=== PATIENT | male | born 1935 | race Caucasian/White ===

== ENCOUNTER 2018-09-15 21:51 | Inpatient (IN) | payer MEDICARE ==
--- NOTE | 2018-09-15 22:39 | RAD ---
PORTABLE CHEST ONE VIEW 09/15/18 at 10:21 p.m. HISTORY: Chest pain. FINDINGS: The heart size is borderline. The lungs were expanded without lobar consolidation, pneumothoraces, fr ank pulmonary edema or pleural effusions. IMPRESSION: No acute process. POS: [facility]
[2018-09-15 22:45] LABS: #Lymphocytes 1.7 thou/uL (1.20-3.40); #Monocytes 0.4 thou/uL (0.11-0.59); #Neutrophils 6.5 thou/uL (1.40-6.50); %Basophils 0.4 % (0.0-1.0); %Eosinophils 0.6 % (0.0-10.0); %Lymphocytes 19.9 % (21.0-51.0); %Monocytes 4.5 % (0.0-10.0); %Neutrophils 74.7 % (42.0-75.0); Hemoglobin 11.1 g/dL (14.0-18.0); MDiff Complete? YES; Macrocytosis SLIGHT = 6-15 cells (100X) (0-5/hpf); Mean Corpuscular HGB CONC 31.5 g/dL (32.0-36.0); Mean Corpuscular Hemoglobin 32.9 pg (27.0-31.0); Platelet Count 155 thou/uL (130-400); RBC Distribution Width 12.6 % (11.5-14.5); Red Blood Cell (RBC) Count 3.36 mill/uL (4.70-6.10); White Blood Cell (WBC) Count 8.7 thou/uL (4.8-10.8)
[2018-09-15 22:53] LABS: ALT (SGPT) Less than 7 U/L (8-55); AST (SGOT) 11 U/L (5-34); Albumin 2.7 g/dL (3.4-4.8); Alkaline Phosphatase 45 U/L (40-150); Anion Gap 14 mmol/L (10-20); BUN (Urea Nitrogen) 12 mg/dL (8.4-25.7); Bilirubin, Total 0.4 mg/dL (0.2-1.2); CK (CPK) 46 U/L (30-200); Calc. Creatinine Clearance 0 mL/min (70-130); Calcium 8.3 mg/dL (7.8-10.44); Carbon Dioxide 25 mmol/L (23-31); Chloride 105 mmol/L (98-107); Estimated GFR-MDRD 49; Globulin 3.6 g/dL (2.4-3.5); Glucose 116 mg/dL (83-110); Lipase 13 U/L (8-78); Potassium 3.7 mmol/L (3.5-5.1); Protein, Total 6.3 g/dL (5.8-8.1); Sodium 140 mmol/L (136-145)
[2018-09-15 23:19] LABS: INR-International Normal Ratio 1.4; PTT 34.8 SEC (22.9-36.1); Prothrombin Time 17.5 SEC (12.0-14.7)
[2018-09-16] MEDS ORDERED: Ondansetron PF 4 MG/2 ML Vial IVP PRN (02:16)
[2018-09-16] MEDS ORDERED: Acetaminophen 325 MG TAB PO PRN (02:16)
[2018-09-16] MEDS ORDERED: Ondansetron ODT 4 MG TAB SL PRN (02:16)
[2018-09-16 02:38] LABS: Hemoglobin 9.9 g/dL (14.0-18.0)
[2018-09-16] MEDS ORDERED: Digoxin 0.5 MG/2 ML AMP SLOW IVP PRN (04:06)
[2018-09-16] MEDS ORDERED: Midodrine HCl 5 MG TAB PO SCH (09:00)
[2018-09-16 09:48] LABS: #Eosinphils 0.1 thou/uL (0.0-0.7); #Lymphocytes 2.1 thou/uL (1.20-3.40); #Monocytes 0.3 thou/uL (0.11-0.59); #Neutrophils 4.5 thou/uL (1.40-6.50); %Eosinophils 0.9 % (0.0-10.0); %Monocytes 4.1 % (0.0-10.0); Hemoglobin 9.8 g/dL (14.0-18.0); Mean Corpuscular Hemoglobin 34.4 pg (27.0-31.0); Mean Platelet Volume 9.4 fL (7.4-10.4); Platelet Count 156 thou/uL (130-400); RBC Distribution Width 12.5 % (11.5-14.5); Red Blood Cell (RBC) Count 2.86 mill/uL (4.70-6.10); White Blood Cell (WBC) Count 6.9 thou/uL (4.8-10.8)
[2018-09-16 10:10] LABS: ALT (SGPT) Less than 7 U/L (8-55); AST (SGOT) 10 U/L (5-34); Albumin 2.6 g/dL (3.4-4.8); Alkaline Phosphatase 40 U/L (40-150); Anion Gap 14 mmol/L (10-20); BUN (Urea Nitrogen) 12 mg/dL (8.4-25.7); Bilirubin, Total 0.5 mg/dL (0.2-1.2); Calc. Creatinine Clearance 58 mL/min (70-130); Calcium 8.2 mg/dL (7.8-10.44); Carbon Dioxide 25 mmol/L (23-31); Chloride 106 mmol/L (98-107); Estimated GFR-MDRD 53; Globulin 3.3 g/dL (2.4-3.5); Glucose 105 mg/dL (83-110); Iron 29 ug/dL (65-175); Iron Binding Capacity, Total 180 mcg/dL (261-462); Potassium 3.8 mmol/L (3.5-5.1); Protein, Total 5.9 g/dL (5.8-8.1); Sodium 141 mmol/L (136-145)
[2018-09-16] MEDS ORDERED: GoLYTELY 4,000 ml Bottle PO SCH (10:30)
--- NOTE | 2018-09-16 10:40 | CON ---
DATE OF CONSULTATION: 09/16/2018 HISTORY OF PRESENT ILLNESS: The patient is an 83-year-old male, who was in his normal state of health until yesterday morning when he had a large amount of blood per rectum. He has not had prior GI bleeding. He had no abdominal pain. No nausea or vomiting. No recent weight loss. The patient does take Eliquis for atrial fibrillation. He had a colonoscopy approximately 5 to 6 years ago with no significant abnormalities noted per the patient's . PAST MEDICAL HISTORY: Significant for congestive heart failure and atrial flutter. PAST SURGICAL HISTORY: Includes appendectomy and cholecystectomy. ALLERGIES: NO KNOWN MEDICAL ALLERGIES. MEDICATIONS: Include: 1. Aspirin 81 mg p.o. daily. 2. Atorvastatin 40 mg once daily. 3. Eliquis 5 mg b.i.d. 4. Ranexa 500 mg p.o. b.i.d. 5. Midodrine 10 mg p.o. t.i.d. 6. Zyrtec 10 mg one p.o. daily. 7. Centrum Silver 1 p.o. daily. 8. Vitamin B12 of 1000 mcg one p.o. daily. SOCIAL HISTORY: Does not smoke or drink. FAMILY HISTORY: Negative for GI or liver disease. REVIEW OF SYSTEMS: CONSTITUTIONAL: No fever or chills. No weight loss. EYES: No blurred vision or double vision. ENT: No sore throat or earaches. CARDIOVASCULAR: No chest pain or palpitations. PULMONARY: No shortness of breath, cough, or wheezing. GI: See above. : No hematuria or dysuria. MUSCULOSKELETAL: No joint pain or muscle weakness. SKIN: No rashes. NEUROLOGIC: No numbness or seizure activity. PHYSICAL EXAMINATION: GENERAL: Shows a well-developed, well-nourished white male, in no acute distress. VITAL SIGNS: Temperature 99.1, pulse 122, respiratory rate 16, and blood pressure 114/60. HEENT: Unremarkable. NECK: Supple. CHEST: Clear. CARDIOVASCULAR: Irregular rate and rhythm. ABDOMEN: Benign. EXTREMITIES: Normal. NEUROLOGIC: Nonfocal. LABORATORY DATA: Shows admission hemoglobin 11.1 and hematocrit of 35.2, decreased to 9.8 and 29.8. PT is 15.5 with an INR of 1.4. Chemistry shows a creatinine 1.38, glucose 111. ALT less than 7 and albumin 2.7. ASSESSMENT: 1. Gastrointestinal bleed. 2. Anemia secondary to gastrointestinal bleed. 3. History of atrial fibrillation or atrial flutter, on Eliquis. 4. Dyspepsia - probably represents gastroesophageal reflux. RECOMMENDATIONS: 1. EGD and colonoscopy tomorrow. 2. Continue to hold Eliquis. 3. Serial hemoglobin and hematocrit. Job ID: [id number]
--- NOTE | 2018-09-16 12:16 | HP ---
PRIMARY CARE PHYSICIAN: Dr. Padilla. The patient does have Cardiology EP physician in [place]. CHIEF COMPLAINT/HISTORY OF PRESENT ILLNESS: The patient presented to the emergency room for evaluation of hematochezia. Reports 2 bright red stools starting earlier in the day. Also reported a heart rate of 125 this week. Had a history of atrial flutter, reports that is normally 68 to 72, but it is in the 95 to 105 range. Reports that he is scheduled for a cardiac ablation as he has been in atrial flutter for the past 2 weeks. Cardiac ablation scheduled in [place]. The patient also with history of atrial fibrillation, had an ablation for that 12 years ago, and has been asymptomatic until recently. The patient is on Eliquis, but when he started having blood in the stools, he did not take his dose yesterday. Denies any abdominal pain, but is associated some nausea, some weakness, and bloating. Denies any chest pain per se. The patient reports no more bloody stools since he was admitted to the hospital. It was noted his hemoglobin on admission was 11.1, hematocrit 35.2, and platelet count was 155, 9 o'clock, 09/16/2018. Hemoglobin gone down to 9.8, hematocrit 29.8, and platelet count remains the same. INR is 1.4, PT 17.5, and APTT 34.8. The patient was admitted for further management of lower GI bleed and atrial flutter with increased heart rate. PAST MEDICAL HISTORY: Congestive heart failure, atrial flutter, hypotension, history of atrial fibrillation, and has had an ablation. PAST SURGICAL HISTORY: Appendectomy, cholecystectomy, and cardiac ablation. PSYCHIATRIC HISTORY: None. SOCIAL HISTORY: Denies alcohol or drug use. Denies any smoking history. ALLERGIES: NONE. MEDICATIONS: Include, 1. Aspirin 81 mg p.o. daily. 2. Atorvastatin 40 mg once daily. 3. Eliquis 5 mg b.i.d. 4. Ranexa 500 mg p.o. b.i.d. 5. Midodrine 10 mg p.o. t.i.d. 6. Zyrtec 10 mg p.o. daily. 7. Centrum 1 p.o. daily. 8. Vitamin B12 1000 mcg one p.o. daily. REVIEW OF SYSTEMS: CONSTITUTIONAL: Denies fever or chills. EYES: Denies any eye pain or any eye changes. ENT: Denies rhinorrhea or sore throat. CARDIOVASCULAR: Does report an elevated heart rate. Reports hypotension. RESPIRATORY: Denies cough or shortness of breath. GI: Denies abdominal pain, constipation, or diarrhea. Does report some nausea, hematochezia, and bloating. : Denies any dysuria or hematuria. MUSCULOSKELETAL: Denies back pain. Denies recent fall or injury. Denies neck pain. SKIN: Denies rash or skin changes. NEUROLOGIC: Denies any headache or sensory or motor deficits. HEMO: Denies abnormal blood clotting. PHYSICAL EXAMINATION: VITAL SIGNS: Temperature is 99.1, pulse 122, respirations 16, pulse ox 94% on room air, and blood pressure 114/60. CONSTITUTIONAL: The patient appears in no distress. He is alert and oriented to person, place, and time. HEENT: Head is atraumatic and normocephalic. Eyes; eyelids are normal to inspection. Pupils are equally round and reactive to light. ENT; mouth exam is normal. Mucous membranes are moist. NECK: Normal range of motion. Trachea is midline. RESPIRATORY: Breath sounds are clear. No signs of respiratory distress. CARDIOVASCULAR: Irregularly irregular rhythm. Heart sounds are normal. ABDOMEN: Nontender. Bowel sounds are heard. BACK: Normal inspection. Normal range of motion. EXTREMITIES: Upper extremity; motor strength is normal, sensation is intact, radial pulses equal bilaterally. Lower extremity; normal inspection, normal range of motion, sensation is intact, pedal pulses equal bilaterally. NEURO: The patient is oriented to person, place, and time. Speech is normal. SKIN: Warm, dry, normal in color. PSYCH: Normal affect. DIAGNOSTIC DATA: EKG interpretation; EKG shows rhythm to be atrial fibrillation with rapid ventricular response, beats per minute 105. PERTINENT LABORATORY DATA: Sodium 140, potassium 3.7, chloride 105, carbon dioxide 25, gap is 14, BUN is 12, creatinine is 1.38, estimated GFR is 49, glucose 116, calcium 8.3, bilirubin is 0.4, and lipase is 13. Liver enzymes are unremarkable. White blood cell count 8.7, hemoglobin 11.1, hematocrit 35.2, and platelet count is 155. The patient had a chest x-ray, no acute process. ASSESSMENT AND PLAN: 1. Lower gastrointestinal bleeding. We will hold Eliquis and aspirin. We will trend hemoglobin and hematocrit. We will ask Gastroenterology to consult. We will keep n.p.o. until Gastroenterology has been able to see the patient. 2. Atrial fibrillation with history of atrial flutter, currently rate controlled. We will ask Cardiology to consult. Add digoxin as needed. 3. History of hypotension. We will restart midodrine. 4. Congestive heart failure. We will start Ranexa. We will monitor for any signs of fluid overload. 5. Hyperlipidemia. We will restart statin. 6. Hospital course will be dependent on clinical findings. Job ID: [id number]
--- NOTE | 2018-09-16 12:29 | CON ---
DATE OF CONSULTATION: PRIMARY BOARDING KENNEL OR CATTERY OPERATOR: The patient's primary senior research manager is in [place] in [place]. PRIMARY CARE DOCTOR: The patient's primary care doctor here in the [facility] is going to be Dr. Kimberlyn Lorenzo. REFERRING PROVIDER: Ms. Emma Harris. REASON FOR CARDIOLOGY CONSULT: Atrial fibrillation with RVR, holding Eliquis due to GI bleed. HISTORY OF PRESENT ILLNESS: Mr. Clemons is an 83-year-old male with a significant long history of atrial fibrillation with ablation in 2006, systolic congestive heart failure, possible multiple TIA and possible coronary artery disease, and sleep apnea using CPAP at night. He had had bright stool x3 since yesterday noon and after the 3rd BM, the patient's took the patient to the emergency department for further evaluation and treatment. The patient's hemoglobin level have been 11.1, 9.9, and 9.8. The patient has been on Eliquis 5 mg twice a day with aspirin 81 mg once a day for atrial fibrillation and possible history of coronary artery disease. For at least 2 years prior to that, the patient was on Coumadin for atrial fibrillation. He never has any GI bleed before. This is the first time. However, he noticed he started having palpitation and worsening of shortness of breath for the last 2 weeks and also he lost appetite and he lost 5 pounds over the 2 weeks. He has history of dizziness due to the hypotensive. However, for the last 2 weeks, his symptoms getting worse and according to the patient, the patient is not thinking clear for the last 2 weeks. The patient denied any chest pain, discomfort in his chest, numbness or tingling to the left upper extremity, pressure to the neck, nausea or vomiting at this moment or during the last 2 weeks. The patient have seen senior research manager in [place] for atrial fibrillation. The patient was told that he had the low EF. Last echo was done 6 months ago, which showed EF of 36% per . He had cardiac cath in 2002. He was told he does not have any coronary artery disease. He has a long history of atrial fibrillation. He has one ablation in 2006. Since then, he has less than 30 minutes Afib episode once a month per . The patient had cardiac CT scan several months ago for possible valve replacement. However, family and the patient did not know which valve the patient need a repair at this moment. The patient had a possible several TIA. However, patient did not present to the emergency department during those episodes. According to the , the patient's provider have checked his echocardiogram which have been normal. MEDICAL HISTORY: 1. Congestive heart failure, possible systolic congestive heart failure, long history of atrial fibrillation. 2. Hypotension. SURGICAL HISTORY: Appendectomy, cholecystectomy, atrial fibrillation ablation in 2006, and bilateral cataract surgery. FAMILY HISTORY: There are no significant cardiac related family history in his family. SOCIAL HISTORY: He stayed in a [place] with his . He denies tobacco, EtOH, or illicit drug abuse. He drinks two bottle of Dr Pepper a day. He used to be active until 2 weeks ago according to due to his cognitive change and they decided to moving to [email or web address]. ALLERGIES: HE IS ALLERGIC TO YEAST. HOME MEDICATIONS: 1. Probiotic one capsule once a day. 2. Calcium 1200 mg once a day. 3. Aspirin 81 mg once a day. 4. Multivitamin one tablet once a day. 5. Vitamin E 400 units once a day. 6. Cetirizine 10 mg once a day. 7. Ropinirole 0.5 mg once a day at bedtime. 8. Vitamin B12 1000 mcg once a day. 9. Midodrine 10 mg 3 times a day. 10. Atorvastatin 20 mg once a day. 11. Ranexa 500 mg twice a day. 12. Eliquis 5 mg once a day. 13. Senna one tablet once a day. REVIEW OF SYSTEMS: 12-point review of systems negative unless otherwise mentioned in the HPI. PHYSICAL EXAMINATION: VITAL SIGNS: Blood pressure 114/60, temperature 99.1, pulse is 100s to 120s Afib, respiratory rate is 16, O2 saturation 94% with room air. GENERAL: The patient is alert and oriented x4, but slow to follow, hard to hearing, but not in acute distress. HEAD: Normocephalic, atraumatic. EYES: Extraocular muscle movement intact. ENT AND MOUTH: Oral and nasal mucosa are moist without lesion. NECK: No JVD. Normal range of motion. LUNGS: Clear to auscultate bilaterally. No wheezing, rales, or rhonchi noted. CARDIOVASCULAR: Irregularly irregular. No S3, S4. No significant murmur, heaves, or thrill noted. 2+ pulses in upper and lower extremities. They have 1-2 pitting edema in the bilateral lower extremities. No discoloration. Carotid pulses are present without bruit or thrill noted. ABDOMEN: Soft, nontender. No masses to palpitate. SKIN: Warm and dry. No rash, lesion, or hematoma noticed. MUSCULOSKELETAL: The patient is able to move all extremities. The patient denied claudication. NEUROLOGIC: The patient is alert and oriented x4. Again, the patient is slow to response. PSYCHIATRIC: The patient's mood is very appropriate. LABORATORY DATA: WBC 6.9, hemoglobin 9.8, hematocrit 29.8, platelet 156. PT 17.5, INR 1.4. Sodium of 141, potassium of 3.8, BUN 12, creatinine 1.29, glucose 105, calcium 8.2. AST 10, ALT less than 7, and troponin 0.027. The patient's chest x-ray showed no acute process. ASSESSMENT AND PLAN: 1. Possible lower gastrointestinal bleed. The patient has bright red bloody stool x3 at home. Already, Dr. Castañeda, who is a GI service consulted this patient. The patient is going to plan to have the procedure, GI workup tomorrow. At this moment, the patient's Eliquis and aspirin is going to be on hold. The patient is going to have serial H and H check. 2. Atrial fibrillation with rapid ventricular response. The patient's heart rate have been in the 90s to 120s. The patient received digoxin 0.25 mg IV push around 4. We would like to start digoxin instead of starting a beta-meri or any antiarrhythmic medication due to the patient's blood pressure. We would like to continue to monitor on the telemetry. The patient's Eliquis and aspirin is going to be hold due to the lower GI bleed. 3. Chronic systolic heart failure. The patient is stable with room air, however, he has 2 pitting edema in the bilateral lower extremities. However, we would like to hold the diuretic for now until his blood pressure is stable at this moment. We would like to continue to monitor. 4. History of possible multiple transient ischemic attack. The patient's condition is stable at this moment. I recommend the patient and to present to the emergency department for next similar symptoms that he had last time. 5. Hypotension. He is on midodrine 10 mg 3 times a day. We would like to continue to monitor. Thank you for allowing the Cardiology Services to participate in the care of this patient. We will follow along the patient's care team and make further recommendations as appropriate. Job ID: [id number]
[2018-09-16] MEDS: Midodrine HCl 5 MG TAB PO SCH ×2 (13:57→18:10)
[2018-09-16 14:34] LABS: Hemoglobin 9.3 g/dL (14.0-18.0)
--- NOTE | 2018-09-16 17:22 | PDOC.EVN ---
Event Note - Event Note Event Note: Patient is getting bowel prep, noted a lot of red blood in stool, Daphney RN talked to Dr. Castañeda, repeat H&H at 1800. Will be off Eliquis 48 hours in the AM. Cardiology consulted and have seen patient. Patient has Afib and has ablation scheduled in the [place].
[2018-09-16 17:59] LABS: Hemoglobin 9.8 g/dL (14.0-18.0); Platelet Count 147 thou/uL (130-400)
[2018-09-16] MEDS ORDERED: rOPINIRole HCl 0.25 MG TAB PO SCH (21:00)
[2018-09-16] MEDS: Atorvastatin Calcium 20 MG TAB PO SCH (21:23)
[2018-09-16] MEDS: rOPINIRole HCl 0.5 MG TAB PO SCH (21:23)
[2018-09-16 21:30] LABS: Hemoglobin 9.5 g/dL (14.0-18.0)
[2018-09-17 05:48] LABS: ALT (SGPT) Less than 7 U/L (8-55); AST (SGOT) 10 U/L (5-34); Albumin 2.6 g/dL (3.4-4.8); Alkaline Phosphatase 41 U/L (40-150); Anion Gap 13 mmol/L (10-20); BUN (Urea Nitrogen) 11 mg/dL (8.4-25.7); Bilirubin, Total 0.5 mg/dL (0.2-1.2); Calc. Creatinine Clearance 64 mL/min (70-130); Carbon Dioxide 25 mmol/L (23-31); Chloride 107 mmol/L (98-107); Estimated GFR-MDRD 60; Glucose 98 mg/dL (83-110); Potassium 3.6 mmol/L (3.5-5.1); Protein, Total 5.6 g/dL (5.8-8.1); Sodium 141 mmol/L (136-145)
[2018-09-17 06:06] LABS: #Eosinphils 0.1 thou/uL (0.0-0.7); #Lymphocytes 1.8 thou/uL (1.20-3.40); #Monocytes 0.3 thou/uL (0.11-0.59); #Neutrophils 3.1 thou/uL (1.40-6.50); %Basophils 0.2 % (0.0-1.0); %Eosinophils 1.9 % (0.0-10.0); %Lymphocytes 34.2 % (21.0-51.0); %Monocytes 5.7 % (0.0-10.0); Hemoglobin 9.1 g/dL (14.0-18.0); Mean Corpuscular HGB CONC 33.1 g/dL (32.0-36.0); Mean Corpuscular Hemoglobin 34.6 pg (27.0-31.0); Platelet Count 138 thou/uL (130-400); Platelet Morphology Comment Appears Adequate; RBC Distribution Width 12.8 % (11.5-14.5); Red Blood Cell (RBC) Count 2.62 mill/uL (4.70-6.10); White Blood Cell (WBC) Count 5.4 thou/uL (4.8-10.8)
[2018-09-17] MEDS: Cyanocobalamin (Vitamin B-12) 1,000 MCG TAB PO SCH (08:19)
[2018-09-17] MEDS: Loratadine 10 MG TAB PO SCH (08:19)
[2018-09-17] MEDS: Calcium Carbonate 500 MG TAB PO SCH (08:19)
[2018-09-17] MEDS: Midodrine HCl 5 MG TAB PO SCH ×4 (08:19→17:57)
[2018-09-17] MEDS: Vitamin E 400 UNITS CAP PO SCH (08:20)
[2018-09-17] MEDS: Senokot S 8.6-50 MG TAB PO SCH (08:20)
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
[2018-09-17] MEDS ORDERED: Fentanyl 100 MCG/2 ML VIAL ONE (10:27)
--- NOTE | 2018-09-17 11:10 | PDOC.CTH ---
Cardiology Progress Note - Subjective The pt seen and examined. No overnight events. No cardiac complaints. - Objective Vital Signs Temp Pulse Resp BP Pulse Ox 09/17/18 08:00 95 09/17/18 07:43 98.6 F 98 18 113/71 95 09/17/18 04:00 97.8 F 115 H 18 123/72 95 09/16/18 23:33 99.0 F 96 16 111/63 93 L Weight 207 lb 3 oz 09/16/18 09/17/18 09/18/18 06:59 06:59 06:59 Intake Total 0 2240 Output Total 0 Balance 0 2240 - Physical Examination General/Neuro: alert & oriented x3 Neck: no JVD present Lungs: CTA Heart: other: (irregular) Abdomen: soft Extremities: other: (No edema) - Telemetry Telemetry Rhythm: Afib 80-110s - Labs Result Diagrams: 09/17/18 04:45 09/17/18 04:45 Troponin/CKMB Troponin I 0.027 ng/mL (< 0.028) 09/15/18 22:15 - Assessment/Plan 1. GI bleed - Hgb is stable; EGD and colonoscopy today; managed by GI service 2. Afib - stable HR; no OAC or ASA 2/2 GI bleed 3. CHF - [facility]; stable with RA. Not on BBlocker or SHANI/ARB due to hypotension 4. Orthstatic hypotension - on Midodrine 10mg TID; 5. Hx of TIA MAR reviewed Pt. seen and eval. by me. No new events. Pt. for GI endoscopy today. Chest clear. Irreg/irreg. Review of Systems - Review of Systems Constitutional: reports: no symptoms reported EENTM: reports: no symptoms reported Respiratory: reports: no symptoms reported Cardiac (ROS): reports: no symptoms reported ABD/GI: reports: no symptoms reported : reports: no symptoms reported Musculoskeletal: reports: no symptoms reported
[2018-09-17] MEDS ORDERED: Dronedarone HCl 400 MG TAB PO SCH ×2 (13:30→17:00)
[2018-09-17] MEDS ORDERED: Ondansetron PF 4 MG/2 ML Vial ONE (15:31)
[2018-09-17] MEDS ORDERED: PROPOFOL 200 MG/20 ML VIAL ONE (15:31)
[2018-09-17] MEDS ORDERED: Lidocaine 1% PF 5 ML VIAL ONE (15:31)
[2018-09-17] MEDS ORDERED: Glycopyrrolate 0.2 MG/ML 5 ML SYRINGE ONE (15:31)
--- NOTE | 2018-09-17 19:03 | PDOC.PN ---
- Subjective Encounter Start Date: 09/17/18 Encounter Start Time: 18:45 Subjective: f/u for GI bleeding on Eliquis s/p EGD/colonoscopy showing diverticulosis -: and polyps but no active bleeding. Hgb trend stable in the 9 range. -: Pt denies any CP, SOB, recurrent bleeding. - Objective MAR Reviewed: Yes Vital Signs & Weight: Vital Signs (12 hours) Temp Pulse Resp BP Pulse Ox 09/17/18 15:43 98.4 F 113 H 20 127/68 92 L 09/17/18 13:18 111 H 18 133/64 95 09/17/18 12:51 98.0 F 112 H 18 111/51 L 97 09/17/18 08:00 95 09/17/18 07:43 98.6 F 98 18 113/71 95 Weight Admit Weight 207 lb 3 oz Weight 207 lb 3 oz I&O: 09/16/18 09/17/18 09/18/18 06:59 06:59 06:59 Intake Total 0 2240 Output Total 0 Balance 0 2240 Result Diagrams: 09/17/18 04:45 09/17/18 04:45 Additional Labs: Laboratory Tests 09/16/18 09/16/18 09/16/18 02:31 09:06 14:26 Hgb 9.9 L 9.8 L 9.3 L 09/16/18 09/16/18 17:51 21:00 Hgb 9.8 L 9.5 L EKG Reviewed by me: Yes (Tele - A-fib in 105's) Phys Exam - Physical Examination Constitutional: NAD alert, responsive, smiles HEENT: PERRLA, sclera anicteric, oral pharynx no lesions Neck: no nodes, no JVD, supple, full ROM Respiratory: no wheezing, no rales, no rhonchi, clear to auscultation bilateral S1, S2 Cardiovascular: no significant murmur, no rub, irregular Gastrointestinal: soft, non-tender, no distention, positive bowel sounds Musculoskeletal: no edema, pulses present Neurological: normal sensation, moves all 4 limbs Psychiatric: A&O x 3 Skin: normal turgor, cap refill <2 seconds Dx/Plan (1) GI bleed Code(s): K92.2 - GASTROINTESTINAL HEMORRHAGE, UNSPECIFIED Status: Acute Comment: Likely related to diverticulosis and Eliquis, hold Eliquis, serial H/H monitoring (2) Acute blood loss anemia Code(s): D62 - ACUTE POSTHEMORRHAGIC ANEMIA Status: Acute Comment: H/H trend stable currently, no need for PRBC's currently, CBC in am (3) Atrial fibrillation with RVR Code(s): I48.91 - UNSPECIFIED ATRIAL FIBRILLATION Status: Acute Comment: Plan for HUSAM/Cardioversion in am, continue Multaq 400mg BID (4) Chronic anticoagulation Code(s): Z79.01 - FDC (CURRENT) USE OF ANTICOAGULANTS Status: Acute Comment: Eliquis on hold x 4 days - Plan plan discussed w/ family, PT/OT, out of bed/ambulate, DVT proph w/SCDs Stable currently -: Continue Multaq 400mg BID -: HUSAM/Cardioversion in am -: Continue Midodrine -: AM lab: BMP, CBC * .
[2018-09-17] MEDS: Dronedarone HCl 400 MG TAB PO SCH (20:13)
[2018-09-17] MEDS: Atorvastatin Calcium 20 MG TAB PO SCH (20:13)
[2018-09-17] MEDS: rOPINIRole HCl 0.5 MG TAB PO SCH (20:13)
[2018-09-18 05:46] LABS: #Eosinphils 0.1 thou/uL (0.0-0.7); #Lymphocytes 1.8 thou/uL (1.20-3.40); #Monocytes 0.4 thou/uL (0.11-0.59); #Neutrophils 4.7 thou/uL (1.40-6.50); %Basophils 0.3 % (0.0-1.0); %Lymphocytes 25.1 % (21.0-51.0); %Monocytes 5.5 % (0.0-10.0); %Neutrophils 68.1 % (42.0-75.0); Hemoglobin 8.7 g/dL (14.0-18.0); Mean Corpuscular Hemoglobin 34.9 pg (27.0-31.0); Mean Platelet Volume 8.9 fL (7.4-10.4); Platelet Count 129 thou/uL (130-400); RBC Distribution Width 12.9 % (11.5-14.5); Red Blood Cell (RBC) Count 2.49 mill/uL (4.70-6.10)
[2018-09-18] MEDS: Dronedarone HCl 400 MG TAB PO SCH ×2 (06:08→20:09)
[2018-09-18 06:14] LABS: Anion Gap 11 mmol/L (10-20); BUN (Urea Nitrogen) 12 mg/dL (8.4-25.7); Calc. Creatinine Clearance 59 mL/min (70-130); Calcium 8.1 mg/dL (7.8-10.44); Carbon Dioxide 26 mmol/L (23-31); Chloride 105 mmol/L (98-107); Estimated GFR-MDRD 56; Glucose 95 mg/dL (83-110); Potassium 3.8 mmol/L (3.5-5.1); Sodium 138 mmol/L (136-145)
--- NOTE | 2018-09-18 09:47 | PDOC.CTH ---
Cardiology Progress Note - Subjective The pt seen and examined. No overnight. No cardiac complaints. - Objective Vital Signs Temp Pulse Resp BP Pulse Ox 09/18/18 08:00 98.6 F 103 H 16 112/67 94 L 09/18/18 07:05 98.6 F 91 20 91/50 L 92 L 09/18/18 06:08 79 102/56 L 09/18/18 03:20 99.1 F 103 H 12 94/56 L 92 L 09/17/18 23:41 98.4 F 97 12 130/76 96 Admit Weight 207 lb 3 oz Weight 204 lb 09/17/18 09/18/18 09/19/18 06:59 06:59 06:59 Intake Total 2240 240 Balance 2240 240 - Physical Examination General/Neuro: alert & oriented x3 Neck: no JVD present Lungs: CTA Heart: other: (irregular) Abdomen: soft Extremities: other: (No edema) - Telemetry Telemetry Rhythm: Afib 90-110s - Labs Result Diagrams: 09/18/18 05:26 09/18/18 05:26 Troponin/CKMB Troponin I 0.027 ng/mL (< 0.028) 09/15/18 22:15 - Assessment/Plan 1. GI bleed 2/2 diverticulum - managed by GI service 2. Afib - stable HR; no OAC or ASA 2/2 GI bleed for at least 4 days; On Multaq since last night; plan for HUSAM/DCCV today by Dr Lorenzo 3. CHF - getting Echo result from [facility]; stable with RA. Not on BBlocker or SHANI/ARB due to hypotension 4. Orthstatic hypotension - on Midodrine 10mg TID; 5. Hx of TIA MAR reviewed Review of Systems - Review of Systems Constitutional: reports: no symptoms reported EENTM: reports: no symptoms reported Respiratory: reports: no symptoms reported Cardiac (ROS): reports: no symptoms reported ABD/GI: reports: no symptoms reported : reports: no symptoms reported Musculoskeletal: reports: no symptoms reported
[2018-09-18] MEDS: Loratadine 10 MG TAB PO SCH (09:51)
[2018-09-18] MEDS: Midodrine HCl 5 MG TAB PO SCH ×3 (09:51→16:52)
[2018-09-18] MEDS: Vitamin E 400 UNITS CAP PO SCH (09:52)
[2018-09-18] MEDS: Calcium Carbonate 500 MG TAB PO SCH (09:54)
[2018-09-18] MEDS: Senokot S 8.6-50 MG TAB PO SCH (09:54)
[2018-09-18] MEDS: Cyanocobalamin (Vitamin B-12) 1,000 MCG TAB PO SCH (09:54)
--- NOTE | 2018-09-18 12:25 | OP ---
DATE OF PROCEDURE: 09/17/2018 PREOPERATIVE DIAGNOSIS: GI hemorrhage. DESCRIPTION OF PROCEDURE: After informed consent was obtained, the patient was placed in left lateral decubitus position. Anesthesia was administered per the Anesthesia Department. Forward-viewing endoscope was inserted into esophagus under direct visualization with ease and passed to the second portion of the duodenum with ease. Second portion of duodenum and duodenal bulb were normal. The pylorus, antrum, body, fundus, and cardia were normal except for a small hiatal hernia. Retroflexion in stomach was normal. No blood was seen in the upper GI tract. Esophagus was normal throughout. ASSESSMENT: 1. Small hiatal hernia. 2. Otherwise normal esophagogastroduodenoscopy. RECOMMENDATIONS: 1. Proceed with colonoscopy. DESCRIPTION OF PROCEDURE: After informed consent was obtained, the patient was placed in a left lateral decubitus position. Anesthesia was administered per the Anesthesia Department. Forward-viewing endoscope was inserted into the rectum after perianal inspection and rectal exam were normal and passed to the cecum with ease and into the ileum. The ileum, ileocecal valve, and appendiceal orifice were normal. The prep was good. The ascending, transverse, descending, sigmoid, and rectum were normal except for the following findings. Diffuse diverticula were noted throughout the colon. In the cecum, a large 2 cm semi-pedunculated polyp was seen and removed with snare electrocautery. In the ascending, transverse, four additional polyps were seen, removed with snare polypectomy. ASSESSMENT: 1. Diffuse diverticulosis coli-probable source of the patient's bleeding. 2. Five polyps-status post polypectomy. RECOMMENDATIONS: 1. Await histopathology. 2. Hold Eliquis for four additional days, then resume. 3. Resume diet. Job ID: [id number]
[2018-09-18] MEDS ORDERED: PROPOFOL 200 MG/20 ML VIAL ONE (14:56)
--- NOTE | 2018-09-18 14:58 | PDOC.PN ---
- Subjective Encounter Start Date: 09/18/18 Encounter Start Time: 09:15 Patient seen and examined for GI bleed with Afib/RVR. No new GI bleeding No new complaints. No overnight events - Objective MAR Reviewed: Yes Vital Signs & Weight: Vital Signs (12 hours) Temp Pulse Pulse Pulse Pulse Resp BP 09/18/18 11:31 98.7 F 93 20 09/18/18 11:10 98.7 F 93 20 09/18/18 09:30 81 122 H 104 H 94/53 L 09/18/18 08:00 98.6 F 103 H 16 09/18/18 07:05 98.6 F 91 20 09/18/18 06:08 79 09/18/18 03:20 99.1 F 103 H 12 BP BP BP Pulse Ox 09/18/18 11:31 106/64 97 09/18/18 11:10 106/64 97 09/18/18 09:30 90/54 L 85/52 L 09/18/18 08:00 112/67 94 L 09/18/18 07:05 91/50 L 92 L 09/18/18 06:08 102/56 L 09/18/18 03:20 94/56 L 92 L Weight Admit Weight 207 lb 3 oz Weight 204 lb I&O: 09/17/18 09/18/18 09/19/18 06:59 06:59 06:59 Intake Total 2240 240 Balance 2240 240 Result Diagrams: 09/18/18 05:26 09/18/18 05:26 EKG Reviewed by me: Yes (Tele Afib) Phys Exam - Physical Examination Constitutional: NAD Respiratory: no wheezing, no rhonchi Cardiovascular: no rub, irregular Gastrointestinal: soft, non-tender, positive bowel sounds Musculoskeletal: no edema Neurological: moves all 4 limbs Dx/Plan - Plan DVT proph w/SCDs IMPRESSION: 1. LGI bleeding 2. Acute blood loss anemia 3. Afib with RVR 4. Chronic hypotension 5. HLD PLAN: HUSAM/CV in AM Anticoag on hold per GI Resume ASA in AM Cont Midodrine/Multaq and other meds as below AM labs Check iron profile in AM Consult [employer] for dietary modifications for diverticulosis Review of Systems - Review of Systems Respiratory: negative: Cough, Dry, Shortness of Breath, Hemoptysis, SOB with Excertion, Pleuritic Pain, Sputum, Wheezing Cardiovascular: negative: chest pain, palpitations, orthopnea, paroxysmal nocturnal dyspnea, edema, light headedness, other - Medications/Allergies Allergies/Adverse Reactions: Allergies Allergy/AdvReac Type Severity Reaction Status Date / Time Yeast Allergy Verified 09/16/18 13:50 Medications: Current Medications Aspirin (Ecotrin) 81 mg PO DAILY [facility] Atorvastatin Calcium (Lipitor) 20 mg PO HS [facility] Last Admin: 09/17/18 20:13 Dose: 20 mg Calcium Carbonate (Oscal-500) 1,200 mg PO DAILY [facility] Last Admin: 09/18/18 09:54 Dose: Not Given Cyanocobalamin (Vitamin B-12) 1,000 mcg PO DAILY [facility] Last Admin: 09/18/18 09:54 Dose: 1,000 mcg Dronedarone (Multaq) 400 mg PO 0600,2100 [facility] Last Admin: 09/18/18 06:08 Dose: 400 mg Loratadine (Claritin) 10 mg PO DAILY [facility] Last Admin: 09/18/18 09:51 Dose: 10 mg Midodrine (Proamatine) 10 mg PO 0900,1300,1800 [facility] Last Admin: 09/18/18 13:16 Dose: 10 mg Ranolazine (Ranexa) 500 mg PO BID [facility] Last Admin: 09/18/18 09:52 Dose: 500 mg Ropinirole HCl (Requip) 0.5 mg PO HS [facility] Last Admin: 09/17/18 20:13 Dose: 0.5 mg Senna/Docusate Sodium (Senokot S) 1 tab PO DAILY [facility] Last Admin: 09/18/18 09:54 Dose: Not Given Sodium Chloride (Flush - Normal Saline) 10 ml IVF Q12HR PRN PRN Reason: Saline Flush Vitamin E (Vitamin E) 400 units PO DAILY [facility] Last Admin: 09/18/18 09:52 Dose: 400 units
[2018-09-18] MEDS ORDERED: Dextrose 5 %-0.45 % NaCl 1,000 ML IV SCH (15:45)
--- NOTE | 2018-09-18 19:23 | PRG ---
DATE OF SERVICE: 09/18/2018 SUBJECTIVE: The patient is doing well. He has had no further bleeding. OBJECTIVE: VITAL SIGNS: Temperature 98.6, pulse 79, respiratory rate 18, blood pressure 104/59. CHEST: Clear. CARDIOVASCULAR: Regular rate and rhythm. ABDOMEN: Benign. LABORATORY DATA: Hemoglobin 8.7, platelet count 129. ASSESSMENT: 1. Diverticular hemorrhage. 2. Multiple adenomatous colon polyps. 3. Atrial fibrillation, on Eliquis. RECOMMENDATIONS: 1. Tomorrow evening, the patient will complete his four days off Eliquis and he can resume Eliquis. 2. Recheck H and H in a.m. Job ID: [id number]
[2018-09-18] MEDS: Atorvastatin Calcium 20 MG TAB PO SCH (20:08)
[2018-09-18] MEDS: rOPINIRole HCl 0.5 MG TAB PO SCH (20:08)
[2018-09-19 05:31] LABS: Hemoglobin 8.8 g/dL (14.0-18.0); Platelet Count 135 thou/uL (130-400)
[2018-09-19] MEDS: Dronedarone HCl 400 MG TAB PO SCH ×2 (06:06→21:08)
[2018-09-19 06:08] LABS: Iron 26 ug/dL (65-175); Iron Binding Capacity, Total 179 mcg/dL (261-462)
--- NOTE | 2018-09-19 08:07 | EKG ---
Test Reason : POST HUSAM/CARDIOVERSI Blood Pressure : / mmHG Vent. Rate : 082 BPM Atrial Rate : 089 BPM P-R Int : 000 ms QRS Dur : 128 ms QT Int : 430 ms P-R-T Axes : 000 054 -85 degrees QTc Int : 502 ms Atrial fibrillation Non-specific intra-ventricular conduction block Inferior infarct (cited on or before 15-SEP-2018) Abnormal ECG When compared with ECG of 15-SEP-2018 22:01, (Unconfirmed) No significant change was found Confirmed by CHECO RICKETTS ([id number]) on 09/19/2018 8:06:54 AM Referred By: HAILEY Confirmed By:CHECO RICKETTS
--- NOTE | 2018-09-19 08:29 | OP ---
DATE OF PROCEDURE: 09/18/2018 INDICATION FOR PROCEDURE: An 83-year-old patient with cardiomyopathy, atrial fibrillation, was noted to have GI bleed, he was taken off his anticoagulation approximately two and half days ago. He also had a colonoscopy, was not found to have any significant bleed, was felt to be due to a diverticulum, then three polyps apparently were removed from the colon. He was told he could not take his anticoagulation for at least another three days. Given his high risk of stroke and decreased cardiac output, it was advised to try to do an early cardioversion in this gentleman since he was unable to take oral anticoagulation. He was placed on Multaq, had three doses of Multaq, and then was taken to the recovery area, where he underwent short acting propofol. The transesophageal probe was easily advanced down the distal esophagus. IMPRESSION: Are as follows; 1. Severe decrease in left ventricular size and function. Ejection fraction is estimated at 20% to 25%. 2. Smoke noted in the left ventricle, left atrium, and left atrial appendage, but no complete thrombus formation was noted. Also, he had moderate mitral valve regurgitation, [id number] tricuspid valve regurgitation, mild aortic valve regurgitation. Aortic valve was mildly sclerotic. The left atrium was more than 5 cm in diameter. The flow in the left atrial appendage approximately 1 m/sec. We then decided to proceed with electrocardioversion. Job ID: [id number]
[2018-09-19] MEDS: Vitamin E 400 UNITS CAP PO SCH (08:54)
[2018-09-19] MEDS: Aspirin 81 mg Enteric Coated Tablet PO SCH (08:54)
[2018-09-19] MEDS: Senokot S 8.6-50 MG TAB PO SCH (08:54)
[2018-09-19] MEDS: Calcium Carbonate 500 MG TAB PO SCH (08:54)
[2018-09-19] MEDS: Midodrine HCl 5 MG TAB PO SCH ×3 (08:55→17:44)
[2018-09-19] MEDS: Loratadine 10 MG TAB PO SCH (08:55)
[2018-09-19] MEDS: Multivit, Therapeutic 1 TAB PO SCH (08:55)
[2018-09-19] MEDS: Cyanocobalamin (Vitamin B-12) 1,000 MCG TAB PO SCH (08:55)
[2018-09-19] MEDS ORDERED: Iron Sucrose Complex 200 MG in Sodium Chloride 0.9% 250 ML 250 ML IVPB SCH (09:45)
[2018-09-19] MEDS ORDERED: Iron, Sodium Ferric Gluconate 250 MG in Sodium Chloride 0.9% 250 ML 250 ML IVPB SCH (10:00)
[2018-09-19] MEDS ORDERED: Acetaminophen 325 MG TAB PO PRN (12:02)
--- NOTE | 2018-09-19 12:34 | PDOC.CTH ---
Cardiology Progress Note - Subjective The pt seen and examined. No overnight. No cardiac complaints. He stated he feels more energy and more appetite today. - Objective Vital Signs Temp Pulse Resp BP Pulse Ox 09/19/18 11:20 98 F 80 20 107/58 L 09/19/18 08:50 92 L 09/19/18 07:20 99.1 F 68 16 98/55 L 09/19/18 04:35 97.7 F 67 16 100/57 L 92 L Admit Weight 207 lb 3 oz Weight 204 lb 12.8 oz 09/18/18 09/19/18 09/20/18 06:59 06:59 06:59 Intake Total 240 1222 Balance 240 1222 - Physical Examination General/Neuro: alert & oriented x3 Neck: no JVD present Lungs: CTA Heart: other: (irregular) Abdomen: soft Extremities: other: (No edema) - Telemetry Telemetry Rhythm: Afib 70-80s - Labs Result Diagrams: 09/19/18 05:08 09/18/18 05:26 Troponin/CKMB Troponin I 0.027 ng/mL (< 0.028) 09/15/18 22:15 - Assessment/Plan 1. GI bleed 2/2 diverticulum - managed by GI service 2. Afib with S/p HUSAM/DCCV yesterday by Dr Lorenzo- , converted back to atrial fib. shortly after electrical cardioversion.Stable HR at rest but increases with minimal exertion.; no OAC or ASA 2/2 GI bleed for at least 4 days; Multaq will d /c today since the pt cont. afib with the medication. The pt will f/u with EP in [place] for further tx. 3. Chronic systolic HF with EF 20-25% - Not on BBlocker or SHANI/ARB due to hypotension 4. Orthstatic hypotension - on Midodrine 10mg TID; 5. Hx of TIA MAR reviewed * From Cardiac standpoint, The pt is stable to d/c home and f/u with his EP in [place] for further. Pt. seen and eval. by me. I agree with the A/P by the [employer]. We have discussed the pt. and the plan. He will likely need an ablation of the atrial fibrillation if possible or an AVJ ablation and a bi-V AICD. Review of Systems - Review of Systems Constitutional: reports: no symptoms reported EENTM: reports: no symptoms reported Respiratory: reports: no symptoms reported Cardiac (ROS): reports: no symptoms reported ABD/GI: reports: no symptoms reported : reports: no symptoms reported Musculoskeletal: reports: no symptoms reported
[2018-09-19 13:36] VITALS: BMI 27.0
--- NOTE | 2018-09-19 17:37 | PRG ---
DATE OF SERVICE: 09/19/2018 SUBJECTIVE: The patient is feeling well. He has had no blood or bowel movements. He is moving over to telemetry. OBJECTIVE: VITAL SIGNS: Temperature 98.2, pulse 109, respiratory rate 18, and blood pressure 121/71. CHEST: Clear. CARDIOVASCULAR: Regular rate and rhythm without murmurs or gallops. ABDOMEN: Benign. LABORATORY DATA: Shows a hemoglobin of 8.8, hematocrit 27.1. Iron is 26, TIBC is 179, percent sat is 15, and ferritin is . ASSESSMENT: 1. Anemia secondary to gastrointestinal blood loss. 2. Diverticular hemorrhage. 3. Multiple colon polyps. RECOMMENDATIONS: 1. Okay to resume Eliquis. 2. Stable for discharge from GI standpoint. Job ID: [id number]
--- NOTE | 2018-09-19 18:32 | PDOC.PN ---
- Subjective Encounter Start Date: 09/19/18 Encounter Start Time: 13:00 Patient seen and examined for GI bleed. No new GI bleeding. No CP/SOB. No new complaints. No overnight events - Objective MAR Reviewed: Yes Vital Signs & Weight: Vital Signs (12 hours) Temp Pulse Resp BP Pulse Ox 09/19/18 17:32 98.7 F 87 20 124/65 97 09/19/18 15:20 98.2 F 109 H 18 121/71 88 L 09/19/18 11:20 98 F 80 20 107/58 L 09/19/18 08:50 92 L 09/19/18 07:20 99.1 F 68 16 98/55 L Weight Admit Weight 207 lb 3 oz Weight 204 lb 12.8 oz I&O: 09/18/18 09/19/18 09/20/18 06:59 06:59 06:59 Intake Total 240 1222 Balance 240 1222 Result Diagrams: 09/19/18 05:08 09/18/18 05:26 EKG Reviewed by me: Yes (Tele Afib) Phys Exam - Physical Examination Constitutional: NAD Respiratory: no wheezing, no rhonchi Cardiovascular: no rub, irregular Gastrointestinal: soft, non-tender, positive bowel sounds Musculoskeletal: no edema Dx/Plan - Plan DVT proph w/SCDs IMPRESSION: 1. LGI bleeding due to diverticulosis 2. Acute blood loss anemia 3. Afib with RVR 4. Chronic hypotension 5. HLD 6. Chronic systolic HF - ACC stage C - not on ACEI/ARB/BB due to chronic hypotension 7. Iron deficiency anemia PLAN: Resume Eliquis tonight per GI HH in AM Iron transfusion Cont Midodrine and other meds as below DC in 1-2 days if stable Review of Systems - Review of Systems Respiratory: negative: Cough, Dry, Shortness of Breath, Hemoptysis, SOB with Excertion, Pleuritic Pain, Sputum, Wheezing Cardiovascular: negative: chest pain, palpitations, orthopnea, paroxysmal nocturnal dyspnea, edema, light headedness, other - Medications/Allergies Allergies/Adverse Reactions: Allergies Allergy/AdvReac Type Severity Reaction Status Date / Time Yeast Allergy Verified 09/16/18 13:50 Medications: Current Medications Acetaminophen (Tylenol) 650 mg PO Q4H PRN PRN Reason: Headache/Fever or Mild Pain Last Admin: 09/19/18 12:21 Dose: 650 mg Apixaban (Eliquis) 5 mg PO BID [facility] Aspirin (Ecotrin) 81 mg PO DAILY [facility] Last Admin: 09/19/18 08:54 Dose: 81 mg Atorvastatin Calcium (Lipitor) 20 mg PO HS [facility] Last Admin: 09/18/18 20:08 Dose: 20 mg Calcium Carbonate (Oscal-500) 1,200 mg PO DAILY [facility] Last Admin: 09/19/18 08:54 Dose: 1,200 mg Cyanocobalamin (Vitamin B-12) 1,000 mcg PO DAILY [facility] Last Admin: 09/19/18 08:55 Dose: 1,000 mcg Dronedarone (Multaq) 400 mg PO 0600,2100 [facility] Last Admin: 09/19/18 06:06 Dose: 400 mg Loratadine (Claritin) 10 mg PO DAILY [facility] Last Admin: 09/19/18 08:55 Dose: 10 mg Midodrine (Proamatine) 10 mg PO 0900,1300,1800 [facility] Last Admin: 09/19/18 17:44 Dose: 10 mg Multivitamins (Theragran) 1 tab PO DAILY [facility] Last Admin: 09/19/18 08:55 Dose: 1 tab Ranolazine (Ranexa) 500 mg PO BID [facility] Last Admin: 09/19/18 08:54 Dose: 500 mg Ropinirole HCl (Requip) 0.5 mg PO HS [facility] Last Admin: 09/18/18 20:08 Dose: 0.5 mg Senna/Docusate Sodium (Senokot S) 1 tab PO DAILY [facility] Last Admin: 09/19/18 08:54 Dose: 1 tab Sodium Chloride (Flush - Normal Saline) 10 ml IVF Q12HR PRN PRN Reason: Saline Flush
[2018-09-19] MEDS: Apixaban 5 MG TAB PO SCH (21:08)
[2018-09-19] MEDS: Atorvastatin Calcium 20 MG TAB PO SCH (21:09)
[2018-09-19] MEDS: rOPINIRole HCl 0.5 MG TAB PO SCH (21:09)
[2018-09-20 05:22] LABS: Hemoglobin 9.4 g/dL (14.0-18.0); Platelet Count 144 thou/uL (130-400)
[2018-09-20] MEDS: Dronedarone HCl 400 MG TAB PO SCH ×2 (05:26→20:27)
[2018-09-20] MEDS: Apixaban 5 MG TAB PO SCH ×2 (08:56→20:26)
[2018-09-20] MEDS: Midodrine HCl 5 MG TAB PO SCH ×3 (08:56→17:50)
[2018-09-20] MEDS: Loratadine 10 MG TAB PO SCH (08:57)
[2018-09-20] MEDS: Calcium Carbonate 500 MG TAB PO SCH (08:57)
[2018-09-20] MEDS: Aspirin 81 mg Enteric Coated Tablet PO SCH (08:59)
[2018-09-20] MEDS: Senokot S 8.6-50 MG TAB PO SCH (08:59)
[2018-09-20] MEDS: Multivit, Therapeutic 1 TAB PO SCH (08:59)
[2018-09-20] MEDS: Cyanocobalamin (Vitamin B-12) 1,000 MCG TAB PO SCH (08:59)
[2018-09-20] MEDS ORDERED: Furosemide 20 MG TAB PO PRN (12:37)
--- NOTE | 2018-09-20 12:42 | PDOC.CTH ---
Cardiology Progress Note - Subjective The pt seen and examined. No overnight events. No cardiac complaints. - Objective Vital Signs Temp Pulse Resp BP Pulse Ox 09/20/18 08:00 100 09/20/18 07:00 98.1 F 79 16 134/61 16 L 09/20/18 03:35 98.9 F 87 20 119/61 100 Admit Weight 207 lb 3 oz Weight 182 lb 8.684 oz 09/19/18 09/20/18 09/21/18 06:59 06:59 06:59 Intake Total 1222 450 120 Output Total 0 Balance 1222 450 120 - Physical Examination General/Neuro: alert & oriented x3 Neck: no JVD present Lungs: CTA Heart: other: (irregular) Abdomen: soft Extremities: other: - Telemetry Telemetry Rhythm: AFib 70-80s - Labs Result Diagrams: 09/20/18 13:01 09/20/18 13:01 Troponin/CKMB Troponin I 0.027 ng/mL (< 0.028) 09/15/18 22:15 - Assessment/Plan 1. GI bleed 2/2 diverticulitis - managed by GI service 2. Afib with S/p HUSAM/DCCV on 09/18/[address] Lorenzo - converted back to atrial fib. shortly after electrical cardioversion. This AM he converted back to sinus rhythm. I will continue the Multaq. Stable HR at rest but increases with minimal exertion; On Eliquis 5mg BID from last night. The pt will f/u with EP in [place] for further tx. 3. Chronic systolic HF with EF 20-25% - Not on BBlocker or SHANI/ARB due to hypotension 4. Orthstatic hypotension - on Midodrine 10mg TID; 5. Hx of TIA MAR reviewed * From Cardiac standpoint, The pt is stable to d/c home and f/u with his EP in [place] for further. He will likely need an ablation of the atrial fibrillation if possible or an AVJ ablation and a bi-V AICD. Pt. seen and eval. by me. I agree with the a/P by the [employer]. He has been walking with assistance. He has been in NSR during the day today. no further bleeding thus far. Chest clear. RRR. Review of Systems - Review of Systems Constitutional: reports: no symptoms reported EENTM: reports: no symptoms reported Respiratory: reports: no symptoms reported Cardiac (ROS): reports: no symptoms reported ABD/GI: reports: no symptoms reported : reports: no symptoms reported Musculoskeletal: reports: no symptoms reported Skin: reports: no symptoms reported
--- NOTE | 2018-09-20 12:53 | OP ---
DATE OF PROCEDURE: 09/18/2018 IMPRESSION: Electrical cardioversion. DESCRIPTION OF PROCEDURE: After the patient underwent transesophageal echocardiogram, was found to have no specific thrombus noted in the left atrial appendage, but did have smoke formation and severe decrease in left ventricular function. Using one attempt to 200 joules, he was successfully converted back to a normal sinus rhythm without any difficulties or complications noted thus far. Job ID: [id number]
[2018-09-20] MEDS ORDERED: Furosemide 20 MG TAB PO SCH (13:00)
[2018-09-20 13:17] LABS: Hemoglobin 9.6 g/dL (14.0-18.0); Mean Corpuscular HGB CONC 32.3 g/dL (32.0-36.0); Mean Corpuscular Hemoglobin 34.4 pg (27.0-31.0); Platelet Count 149 thou/uL (130-400); RBC Distribution Width 13.7 % (11.5-14.5); White Blood Cell (WBC) Count 7.8 thou/uL (4.8-10.8)
[2018-09-20 13:29] LABS: Anion Gap 15 mmol/L (10-20); BUN (Urea Nitrogen) 14 mg/dL (8.4-25.7); Calc. Creatinine Clearance 52 mL/min (70-130); Calcium 8.7 mg/dL (7.8-10.44); Carbon Dioxide 25 mmol/L (23-31); Chloride 101 mmol/L (98-107); Estimated GFR-MDRD 55; Glucose 122 mg/dL (83-110); Magnesium 1.4 mg/dL (1.6-2.6); Potassium 3.9 mmol/L (3.5-5.1); Sodium 137 mmol/L (136-145)
--- NOTE | 2018-09-20 13:39 | RAD ---
CHEST ONE VIEW: HISTORY: Shortness of breath. Findings. COMPARISON: 09/15/2018 FINDINGS: Enlarged cardiac silhouette. Pulmonary vessels and hilum are normal. Costophrenic angles are clear. No consolidation or masses. No pneumothorax or osseous abnormalities. There are chronic changes in the lung parenchyma. IMPRESSION: Chronic changes. No acute process. POS: [facility]
[2018-09-20] MEDS ORDERED: Sodium Chloride 0.65% Nasal 44 ML BOT EA NARE PRN (13:50)
[2018-09-20 13:54] LABS: Band 2 % (5-11); Lymphocytes 15 % (21-51); MDiff Complete? YES; Macrocytosis SLIGHT = 6-15 cells (100X) (0-5/hpf); Monocytes 3 % (0-10); Neutrophil 80 % (42-75); Platelet Morphology Comment Appears Adequate; Polychromasia SLIGHT = 2-3 cells (100X) (0-2/hpf)
[2018-09-20] MEDS ORDERED: Magnesium Sulfate 4 GM in Sodium Chloride 0.9% 250 ML 250 ML IVPB SCH (15:00)
[2018-09-20] MEDS: Atorvastatin Calcium 20 MG TAB PO SCH (20:27)
[2018-09-20] MEDS: rOPINIRole HCl 0.5 MG TAB PO SCH (20:27)
--- NOTE | 2018-09-20 20:52 | PDOC.PN ---
- Subjective Encounter Start Date: 09/20/18 Encounter Start Time: 13:00 Patient seen and examined for GI bleeding. Had some epistaxis - resolved. No new complaints. No overnight events - Objective MAR Reviewed: Yes Vital Signs & Weight: Vital Signs (12 hours) Temp Pulse Resp BP Pulse Ox 09/20/18 16:00 99 F 87 18 113/59 L 100 09/20/18 13:04 98.8 F 80 16 108/61 100 Weight Admit Weight 207 lb 3 oz Weight 182 lb 8.684 oz I&O: 09/19/18 09/20/18 09/21/18 06:59 06:59 06:59 Intake Total 1222 450 850 Output Total 0 Balance 1222 450 850 Result Diagrams: 09/20/18 13:01 09/20/18 13:01 EKG Reviewed by me: Yes (Tele SR) Phys Exam - Physical Examination Constitutional: NAD Respiratory: no wheezing, no rhonchi Cardiovascular: RRR, no rub Gastrointestinal: soft, non-tender, positive bowel sounds Musculoskeletal: no edema Neurological: moves all 4 limbs Dx/Plan - Plan DVT proph w/SCDs IMPRESSION: 1. LGI bleeding due to diverticulosis 2. Acute blood loss anemia 3. Afib with RVR - failed HUSAM-CV - Spont converted to SR 09/20 - Eliquis restarted 09/19 4. Chronic hypotension - on Midodrine 5. HLD 6. Chronic systolic HF - ACC stage C - not on ACEI/ARB/BB due to chronic hypotension 7. Iron deficiency anemia 8. Episataxis - resolved. 9. Hypomagnessemia PLAN: CXR to r/o Pneumonia/CHF Start PO Lasix Cont Eliquis AM labs Cont Midodrine Replace Magnessium Cont current meds as below DC in AM if stable Review of Systems - Review of Systems Respiratory: Shortness of Breath, SOB with Excertion. negative: Cough, Dry, Hemoptysis, Pleuritic Pain, Sputum, Wheezing Cardiovascular: negative: chest pain, palpitations, orthopnea, paroxysmal nocturnal dyspnea, edema, light headedness, other - Medications/Allergies Allergies/Adverse Reactions: Allergies Allergy/AdvReac Type Severity Reaction Status Date / Time Yeast Allergy Verified 09/16/18 13:50 Medications: Current Medications Acetaminophen (Tylenol) 650 mg PO Q4H PRN PRN Reason: Headache/Fever or Mild Pain Last Admin: 09/19/18 12:21 Dose: 650 mg Apixaban (Eliquis) 5 mg PO BID [facility] Last Admin: 09/20/18 20:26 Dose: 5 mg Aspirin (Ecotrin) 81 mg PO DAILY [facility] Last Admin: 09/20/18 08:59 Dose: 81 mg Atorvastatin Calcium (Lipitor) 20 mg PO HS [facility] Last Admin: 09/20/18 20:27 Dose: 20 mg Calcium Carbonate (Oscal-500) 1,200 mg PO DAILY [facility] Last Admin: 09/20/18 08:57 Dose: 1,200 mg Cyanocobalamin (Vitamin B-12) 1,000 mcg PO DAILY [facility] Last Admin: 09/20/18 08:59 Dose: 1,000 mcg Dronedarone (Multaq) 400 mg PO 0600,2100 [facility] Last Admin: 09/20/18 20:27 Dose: 400 mg Furosemide (Lasix) 20 mg PO DAILY PRN PRN Reason: Edema Loratadine (Claritin) 10 mg PO DAILY [facility] Last Admin: 09/20/18 08:57 Dose: 10 mg Midodrine (Proamatine) 10 mg PO 0900,1300,1800 [facility] Last Admin: 09/20/18 17:50 Dose: 10 mg Multivitamins (Theragran) 1 tab PO DAILY [facility] Last Admin: 09/20/18 08:59 Dose: 1 tab Ranolazine (Ranexa) 500 mg PO BID [facility] Last Admin: 09/20/18 20:27 Dose: 500 mg Ropinirole HCl (Requip) 0.5 mg PO HS [facility] Last Admin: 09/20/18 20:27 Dose: 0.5 mg Senna/Docusate Sodium (Senokot S) 1 tab PO DAILY [facility] Last Admin: 09/20/18 08:59 Dose: 1 tab Sodium Chloride (Flush - Normal Saline) 10 ml IVF Q12HR PRN PRN Reason: Saline Flush Last Admin: 09/20/18 08:59 Dose: 10 ml Sodium Chloride ([place] Nasal [place] 0.65%) 0 ml EA NARE TID PRN PRN Reason: Nasal Congestion
[2018-09-21 05:05] LABS: #Monocytes 0.5 thou/uL (0.11-0.59); #Neutrophils 7.3 thou/uL (1.40-6.50); %Basophils 0.3 % (0.0-1.0); %Eosinophils 0.1 % (0.0-10.0); %Lymphocytes 11.4 % (21.0-51.0); %Monocytes 5.8 % (0.0-10.0); %Neutrophils 82.3 % (42.0-75.0); Mean Corpuscular HGB CONC 32.4 g/dL (32.0-36.0); Mean Corpuscular Hemoglobin 34.3 pg (27.0-31.0); Mean Platelet Volume 9.1 fL (7.4-10.4); Platelet Count 145 thou/uL (130-400); RBC Distribution Width 13.7 % (11.5-14.5); Red Blood Cell (RBC) Count 2.63 mill/uL (4.70-6.10); White Blood Cell (WBC) Count 8.9 thou/uL (4.8-10.8)
[2018-09-21 05:32] LABS: Anion Gap 10 mmol/L (10-20); BUN (Urea Nitrogen) 15 mg/dL (8.4-25.7); Calc. Creatinine Clearance 54 mL/min (70-130); Calcium 8.2 mg/dL (7.8-10.44); Carbon Dioxide 30 mmol/L (23-31); Chloride 100 mmol/L (98-107); Estimated GFR-MDRD 57; Glucose 123 mg/dL (83-110); Magnesium 1.9 mg/dL (1.6-2.6); Phosphorus 3.3 mg/dL (2.3-4.7); Potassium 3.8 mmol/L (3.5-5.1); Sodium 136 mmol/L (136-145)
[2018-09-21] MEDS: Dronedarone HCl 400 MG TAB PO SCH (06:06)
[2018-09-21] MEDS ORDERED: Furosemide 20 MG/2 ML VIAL SLOW IVP SCH (09:15)
--- NOTE | 2018-09-21 09:16 | PDOC.CTH ---
Cardiology Progress Note - Subjective the pt seen and examined. No overnight events. Wheezing this AM. Per the , the pt is more confused and SOB this AM. - Objective Vital Signs Temp Pulse Resp BP Pulse Ox 09/21/18 08:05 97.6 F 85 18 120/71 94 L 09/21/18 04:00 97.6 F 87 20 107/55 L 95 Admit Weight 207 lb 3 oz Weight 186 lb 4.65 oz 09/20/18 09/21/18 09/22/18 06:59 06:59 06:59 Intake Total 450 1150 Output Total 0 Balance 450 1150 - Physical Examination General/Neuro: other: (confused) Neck: no JVD present Lungs: other: (coarses and ex wheezing) Heart: RRR, other: Abdomen: soft Extremities: other: (No edema) - Telemetry Telemetry Rhythm: SR - Labs Result Diagrams: 09/21/18 04:40 09/21/18 04:40 Troponin/CKMB Troponin I 0.027 ng/mL (< 0.028) 09/15/18 22:15 - Assessment/Plan 1. GI bleed 2/2 diverticulitis - managed by GI service 2. Afib with S/p HUSAM/DCCV on 09/18/[address] Lorenzo - converted back SR on 2018; Cont. Multaq and Eliquis 5mg BID since 09/19/2018. The pt will f/u with EP in [place] for further tx. 3. Chronic systolic HF with EF 20-25% - wheezing this AM; Lasix 20mg IV x 1 now ; slowly diuresis the pt due to hx of hypotension; Not on BBlocker or SHANI/ARB due to hypotension 4. Orthstatic hypotension - on Midodrine 10mg TID; 5. Hx of TIA MAR reviewed * From Cardiac standpoint, The pt is stable to d/c home and f/u with his EP in [place] for further. He will likely need an ablation of the atrial fibrillation if possible or an AVJ ablation and a bi-V AICD. Pt. seen and eval. by me. I agree with the A/P by the MANAGER COMPENSATION. Review of Systems - Review of Systems Constitutional: reports: see HPI
[2018-09-21] MEDS: Apixaban 5 MG TAB PO SCH (09:43)
[2018-09-21] MEDS: Midodrine HCl 5 MG TAB PO SCH ×2 (09:43→13:49)
[2018-09-21] MEDS: Aspirin 81 mg Enteric Coated Tablet PO SCH (09:44)
--- NOTE | 2018-09-21 14:49 | PDOC.CTH ---
Cardiology Progress Note - Subjective The pt seen and examined. No overnight events. No cardiac complaints. - Objective Vital Signs Temp Pulse Resp BP Pulse Ox 09/21/18 08:05 97.6 F 85 18 120/71 94 L 09/21/18 04:00 97.6 F 87 20 107/55 L 95 Admit Weight 207 lb 3 oz Weight 186 lb 4.65 oz 09/20/18 09/21/18 09/22/18 06:59 06:59 06:59 Intake Total 450 1150 Output Total 0 Balance 450 1150 - Labs Result Diagrams: 09/21/18 04:40 09/21/18 04:40 Troponin/CKMB Troponin I 0.027 ng/mL (< 0.028) 09/15/18 22:15
--- NOTE | 2018-09-21 15:48 | PDOC.EVN ---
Event Note - Event Note Event Note: Patient needs home O2 because he has CHF and because his O2 saturations dropped during walking. This qualifies him for Home O2, note being written for documentation purposes of need for home O2. For details see DC summary.
--- NOTE | 2018-09-21 16:25 | PDOC.EVN ---
Event Note - Event Note Event Note: DC SUMMARY #[id number]
[2018-09-21 16:48] VITALS: BP 110/58; TEMP 98.7
--- NOTE | 2018-09-22 01:39 | DIS ---
DATE OF ADMISSION: 09/16/2018 DATE OF DISCHARGE: 09/21/2018 ADMITTING DIAGNOSES: Acute blood-loss anemia, atrial fibrillation with RVR, chronic hypertension on midodrine, hyperlipidemia, congestive heart failure stage 3, iron deficiency anemia, epistaxis, hypomagnesemia as well as bronchitis. DISCHARGE DIAGNOSES: Acute blood-loss anemia, atrial fibrillation with RVR, chronic hypertension on midodrine, hyperlipidemia, congestive heart failure stage 3, iron deficiency anemia, epistaxis, hypomagnesemia as well as bronchitis, lower gastrointestinal bleed due to diverticulosis. HISTORY OF PRESENT ILLNESS: This is an 83-year-old male, who was admitted to the hospital because of lower GI bleed, was followed by Internal Medicine, GI as well as Cardiology. The patient had medical management adjusted regarding his antiplatelets. The patient also had close followup with GI, had an endoscopic procedure performed, diffuse diverticulosis noted as well as 5 polyps were removed. The patient was followed postoperatively by the Internal Medicine team and the Cardiology team. The patient had adjustments again made to his medications. Echocardiogram performed, which shows an EF of 20% to 22% along with [id number] tricuspid regurgitation. The patient's condition and plan were discussed with his family at length. It was determined that he would be started on dronedarone as he was in atrial fibrillation, which was converted to normal sinus rhythm with dronedarone. The patient was in this medication. The patient was also given prescriptions to Tessalon Perles, as well as Omnicef and Levaquin as he was having cough and shortness of breath with probable bronchitis. However, the patient was stable upon the time of discharge. Upon ambulation, the patient did require home O2. Home O2 was set up. Prescriptions were given for home O2, likely due to CHF as well as hypoxemia noted during ambulation. CONDITION: At the time of discharge was stable. PROGNOSIS: Guarded to poor. DIET: Low-fat low-calorie high-fiber diet. MEDICATIONS: See MAR. ACTIVITY: As tolerated with assistance as needed. FOLLOWUP: Follow up with PCP, Cardiology, and GI within 1 week. Case and plan discussed with the patient and family at length. They understand and agree with this plan. Job ID: [id number]
--- NOTE | 2018-09-22 10:26 | PDOC.EVN ---
Event Note - Event Note Event Note: Call received from patient's . The patient apparently reverted back to atrial fibrillation. The patient's stated the patient's HR fluctuates between 80-100. The patient has been on anticoagulation for the past 4 days now and remains on it. The patient still is coughing up yellow phelm with low grade fevers. advised to stop the multaq as the patient is no longer in NSR, he remains rate controlled and anticoagulated already. Continue with omnicef/ levaquin for now. Patient has an appointment on monday with his advanced manufacturing consultant, further management for a fib per cardio. states patient is hemodynamically stable otherwise. No other changes made to plan of care, case and plan d/w patient's at length over the phone ([phone]) she understood and agreed with this plan.
--- NOTE | 2018-09-22 17:05 | EKG ---
Test Reason : Blood Pressure : / mmHG Vent. Rate : 105 BPM Atrial Rate : 170 BPM P-R Int : 000 ms QRS Dur : 118 ms QT Int : 366 ms P-R-T Axes : 000 047 -88 degrees QTc Int : 483 ms Atrial fibrillation with rapid ventricular response Possible Inferior infarct , age undetermined Abnormal ECG Confirmed by NASIM BAHENA D.O. ([id number]), brands editor HOWARD OLGUIN ([id number]) on 09/22/2018 5:04:46 PM Referred By: Confirmed By:NASIM BAHENA D.O.
== END 2018-09-21 17:21 | disposition home or self-care (01) | DRG 379 ==
LOC: ERS 21:51 → SURG B 23:45 → 2SW 09-16 02:52 → OBSVTOIN 09-16 17:18 → 2NO 09-19 17:05
PROVIDERS: ADMIT Hospitalist; ATTEND Hospitalist
PROC: 0DJ08ZZ Inspection of Upper Intestinal Tract, Via Natural or Artificial Opening Endoscopic (ICD-10-PCS; principal; 2018-09-16)
PROC: 0DBH8ZZ Excision of Cecum, Via Natural or Artificial Opening Endoscopic (ICD-10-PCS; 2018-09-16)
DX: K92.2 Gastrointestinal hemorrhage, unspecified (principal); E78.5 Hyperlipidemia, unspecified; I48.91 Unspecified atrial fibrillation; I50.9 Heart failure, unspecified; I95.1 Orthostatic hypotension; K44.9 Diaphragmatic hernia without obstruction or gangrene; K57.90 Diverticulosis of intestine, part unspecified, without perforation or abscess without bleeding; K63.5 Polyp of colon
CPT/HCPCS: 36415; 71045; 80048; 80053; 82550; 82728; 83540; 83550; 83690; 83735; 84100; 84484; 85014; 85018; 85025; 85049; 85610; 85730; 86850; 86900; 86901; 88305; 92960; 93005; 93010; 93312; 94760; J2001; J2405; J2704; J2916; J3010; J3475; J7050

== ENCOUNTER 2018-10-11 21:39 | Inpatient (IN) | payer MEDICARE ==
[2018-10-11 22:16] LABS: #Lymphocytes 0.4 thou/uL (1.20-3.40); #Monocytes 0.6 thou/uL (0.11-0.59); %Basophils 0.1 % (0.0-1.0); %Eosinophils 0.1 % (0.0-10.0); %Lymphocytes 2.5 % (21.0-51.0); %Monocytes 3.8 % (0.0-10.0); %Neutrophils 93.5 % (42.0-75.0); Hemoglobin 11.3 g/dL (14.0-18.0); Mean Corpuscular HGB CONC 32.2 g/dL (32.0-36.0); Mean Platelet Volume 7.8 fL (7.4-10.4); Platelet Count 190 thou/uL (130-400); RBC Distribution Width 13.7 % (11.5-14.5); Red Blood Cell (RBC) Count 3.42 mill/uL (4.70-6.10); White Blood Cell (WBC) Count 14.9 thou/uL (4.8-10.8)
[2018-10-11 22:32] LABS: ALT (SGPT) 18 U/L (8-55); AST (SGOT) 19 U/L (5-34); Albumin 2.9 g/dL (3.4-4.8); Alkaline Phosphatase 56 U/L (40-150); Anion Gap 15 mmol/L (10-20); BUN (Urea Nitrogen) 17 mg/dL (8.4-25.7); Bilirubin, Total 0.4 mg/dL (0.2-1.2); Calc. Creatinine Clearance 0 mL/min (70-130); Calcium 8.9 mg/dL (7.8-10.44); Carbon Dioxide 24 mmol/L (23-31); Chloride 101 mmol/L (98-107); Estimated GFR-MDRD 48; Globulin 4.1 g/dL (2.4-3.5); Glucose 172 mg/dL (83-110); Potassium 4.3 mmol/L (3.5-5.1); Sodium 136 mmol/L (136-145)
--- NOTE | 2018-10-11 22:48 | CT ---
NONCONTRAST CT HEAD: 10/11/18 HISTORY: Altered mental status. FINDINGS: There is decreased attenuation of the periventricular white matter likely reflective of chronic small vessel ischemic changes. there is no evidence of an acute cortical infarction, hemorrhage, mass effe ct, or midline shift. The ventricular system is normal in size, shape and position. Mild cerebral vol ume loss is present. The visualized paranasal sinuses and mastoid air cells are clear. However, there is question of a few mastoid effusions involving the more inferior right mastoid air cells. The right globe is atrophic and partially calcified. The calvarial structures have a normal appearanc e. IMPRESSION: 1. No acute intracranial abnormalities demonstrated. 2. Chronic small vessel ischemic changes and cerebral volume loss. 3. Mastoid effusions in the more inferior right mastoid air cells. 4. Atrophic and partially calcified right globe. POS: [facility]
--- NOTE | 2018-10-11 23:04 | RAD ---
PORTABLE AP CHEST X-RAY 10/11/18 HISTORY: Altered mental status. COMPARISON: 09/20/18. FINDINGS: Dual lead left subclavian cardiac pacemaking device is noted in place with RV and coronary sinus lead s noted. The cardiac silhouette is magnified by projection but stable in size. The right lung apex is excluded by patient's overlying jaw and mandible. Minimal interstitial densities are seen at each asa ng base similar to prior exam and may be related to mild chronic lung changes. There is no consolidat ion or pleural fluid seen. IMPRESSION: Overall stable chest with mild increased interstitial densities at each lung base which may be relate d to chronic lung changes. However, if patient continues to have respiratory symptoms, followup imagi ng is advised. POS: [facility]
[2018-10-11] MEDS ORDERED: Piperacillin/Tazobactam 4.5 GM VIAL ONE (23:05)
[2018-10-11 23:18] LABS: Bilirubin Small (Negative); Blood, Urine Negative (Negative); Clarity CLEAR (Clear); Glucose, Urine (Dipstick) Negative (Negative); Leukocyte Negative (Negative); Nitrite Negative (Negative); Protein, Urine (Dipstick) > or equal to 300 mg/dL (Neg-Trace); Specific Gravity, Urine 1.029 (1.002-1.036)
[2018-10-11 23:20] LABS: Bacteria/HPF None Seen HPF (None Seen); Hyaline Casts/LPF 0-3 HYALINE CAST LPF (0-3 Hyaline); Pathc Cast-AUWi Flag 0.13 (0-2.49); Squamous Epithelial 0-3 HPF (0-3); WBC/HPF 0-3 HPF (0-3)
[2018-10-11 23:46] LABS: CKMB 0.9 ng/mL (0-6.6)
[2018-10-12] MEDS ORDERED: Acetaminophen 325 MG TAB PO PRN (00:40)
[2018-10-12 00:44] VITALS: BMI 23.6
[2018-10-12 01:52] LABS: #Lymphocytes 2.5 thou/uL (1.20-3.40); #Monocytes 0.7 thou/uL (0.11-0.59); %Basophils 0.2 % (0.0-1.0); %Eosinophils 0.1 % (0.0-10.0); %Lymphocytes 12.9 % (21.0-51.0); %Monocytes 3.8 % (0.0-10.0); %Neutrophils 82.9 % (42.0-75.0); Hemoglobin 10.6 g/dL (14.0-18.0); Mean Corpuscular HGB CONC 32.2 g/dL (32.0-36.0); Mean Corpuscular Hemoglobin 33.2 pg (27.0-31.0); Mean Platelet Volume 7.7 fL (7.4-10.4); Platelet Count 166 thou/uL (130-400); RBC Distribution Width 13.7 % (11.5-14.5); Red Blood Cell (RBC) Count 3.21 mill/uL (4.70-6.10); White Blood Cell (WBC) Count 19.3 thou/uL (4.8-10.8)
[2018-10-12 02:08] LABS: Lactic Acid 2.2 mmol/L (0.5-2.2)
[2018-10-12 02:17] LABS: Anion Gap 15 mmol/L (10-20); BUN (Urea Nitrogen) 18 mg/dL (8.4-25.7); Calc. Creatinine Clearance 47 mL/min (70-130); Calcium 8.9 mg/dL (7.8-10.44); Carbon Dioxide 26 mmol/L (23-31); Chloride 101 mmol/L (98-107); Estimated GFR-MDRD 50; Glucose 142 mg/dL (83-110); Potassium 4.5 mmol/L (3.5-5.1); Sodium 137 mmol/L (136-145)
[2018-10-12 02:23] LABS: Troponin I 0.042 ng/mL (< 0.028)
--- NOTE | 2018-10-12 04:08 | HP ---
PRIMARY CARE PHYSICIAN: Dr. Gabo Padilla. CHIEF COMPLAINT: Fever and altered mental status. HISTORY OF PRESENT ILLNESS: The history of present illness is taken from the patient's who is at the bedside as the patient is currently altered. He does have a history of some dementia as well. Mr. Clemons is a pleasant 83-year-old gentleman, who has a history of atrial fibrillation. He was recently admitted to our facility about 3 weeks ago after suffering from a lower GI bleed due to diverticulosis. He also was in atrial fibrillation, and at that time, underwent cardioversion. After leaving the hospital at our facility, he was hospitalized at the [facility]. While at the [facility], he underwent an AV ablation and a biventricular pacemaker. Also during that hospitalization, his says that he had a pleural effusion and had to undergo thoracentesis. She says the fluid was due to congestive heart failure and there was no infection present at that time. He was hospitalized at the [facility] for a few days and then discharged. After coming home a few days later, he started having shaking chills, and she says that he was confused such that he was unable to use the bedside commode because it seems like he did not know how to use his legs. She says that he also was talking to his daughter who lives in a different city. She says that he started coughing up some white mucus and the home health nurse came to see him and found that he was febrile and sent him to the ER for evaluation. Currently, the patient is still a bit confused. He does not know that he is in the hospital. He is confused on the year as well as the month, but currently says that he feels extremely weak and cannot really offer any additional information. REVIEW OF SYSTEMS: All systems were reviewed and are negative, except for that mentioned in the history of present illness. PAST MEDICAL HISTORY: Significant for chronic systolic heart failure with an ejection fraction of 20% to 25%. He had a transesophageal echo in August of this year. History of lower GI bleed secondary to diverticulosis, atrial fibrillation, iron-deficiency anemia, and dementia. PAST SURGICAL HISTORY: He has had an appendectomy, cholecystectomy, and cardiac ablation. ALLERGIES: NO KNOWN DRUG ALLERGIES. SOCIAL HISTORY: He is . He is a nonsmoker and nondrinker. Code status is a DNR, DNAR. FAMILY HISTORY: Significant for heart disease. CURRENT MEDICATIONS: Include Eliquis 5 mg twice a day, midodrine 10 mg three times a day, ropinirole 0.5 mg daily, vitamin B12 at 1000 mcg daily, Lasix 20 mg daily, and potassium chloride 2.5 mEq daily. PHYSICAL EXAMINATION: GENERAL: He is disoriented to place and time. He is well developed and well nourished, and in no acute distress. VITAL SIGNS: Blood pressure 117/65, heart rate 86, respiratory rate of 24, and temperature is a 101.4. HEENT: Pupils are equal, round, and reactive. Extraocular muscles are intact. His sclerae anicteric. Throat, there is no erythema, no exudates. NECK: No adenopathy. No bruits. LUNGS: He has had some rhonchi, but no rales. No wheezing. CARDIOVASCULAR: He had a normal S1, S2. I did not appreciate an S3 or S4. No murmurs, clicks, or rubs. ABDOMEN: Soft. He had some mild diffuse tenderness, but there is no rebound, no guarding. No organomegaly. EXTREMITIES: There is no clubbing or cyanosis. No edema. No calf tenderness. There is no erythema. NEUROLOGIC: He is moving all extremities and grossly it is nonfocal. SKIN AND INTEGUMENT: No skin changes. No rash. LABORATORY RESULTS: White blood cell count 14.9, hemoglobin 11.3, hematocrit is 35, and platelet count is 190. Sodium is 136, potassium 4.3, chloride is 101, CO2 is 24, BUN of 17, creatinine 1.4, and glucose is 172. Urinalysis shows small bilirubin and trace ketones. The patient had a chest x-ray, which by my reading, showed heart size is on the borderline cardiomegaly and appeared to have some interstitial infiltrates on the left greater than the right. Had a CT scan of the brain, which showed no acute intracranial abnormalities and some chronic small-vessel ischemic change. EKG is by my reading and it is a ventricular paced rhythm. ASSESSMENT: 1. This is a pleasant 83-year-old gentleman, who presents to the emergency room with fever and elevated white count and sepsis of unknown origin. His urine is essentially clear. Chest x-ray is slightly suspicious for possible infiltrate and he has had a cough, so it is possible he could have an early pneumonia. The pacemaker pocket site looks good. There is no erythema, no redness or warmth or induration. He will be placed on telemetry due to the slight elevation in the troponin, started on broad-spectrum IV antibiotics. Cultures of the blood and urine have been obtained in the ER and we will continue broad-spectrum antibiotics to cover for at this point a hospital-acquired pneumonia like setting until the culture results become available. 2. Atrial fibrillation. Currently, he is ventricular paced and on chronic anticoagulation. We will continue the Eliquis while he is in the hospital and monitor his H and H closely. 3. Dementia. 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 Job ID: [id number]
[2018-10-12] MEDS: Piperacillin/Tazobactam 3.375 GM in Sodium Chloride 0.9% 100 ML IVPB SCH ×3 (05:23→17:39)
[2018-10-12] MEDS ORDERED: Dronedarone HCl 400 MG TAB PO SCH (06:00)
[2018-10-12] MEDS: Apixaban 5 MG TAB PO SCH ×2 (08:27→21:53)
[2018-10-12] MEDS: Midodrine HCl 5 MG TAB PO SCH ×3 (08:27→17:38)
[2018-10-12] MEDS: Phenazopyridine HCl 97.5 MG TABLET PO SCH ×3 (08:28→17:38)
[2018-10-12] MEDS: Aspirin 81 mg Enteric Coated Tablet PO SCH (08:28)
[2018-10-12] MEDS: Vancomycin HCl 1 GM in Premix Bag 1 BAG IVPB SCH ×2 (08:36→21:54)
[2018-10-12 09:56] LABS: Hemoglobin 11.2 g/dL (14.0-18.0); Platelet Count 182 thou/uL (130-400)
[2018-10-12] MEDS: Folic Acid 1 MG TAB PO SCH (10:15)
[2018-10-12] MEDS: Senokot S 8.6-50 MG TAB PO SCH (10:16)
[2018-10-12] MEDS: Lactinex Tablet PO SCH (10:16)
[2018-10-12] MEDS: Cyanocobalamin (Vitamin B-12) 1,000 MCG TAB PO SCH (10:16)
[2018-10-12] MEDS: Multivitamin W/ Minerals 1 TAB PO SCH (10:16)
--- NOTE | 2018-10-12 14:23 | PDOC.PN ---
- Subjective Encounter Start Date: 10/12/18 Encounter Start Time: 08:45 -: old records requested/rev Patient seen and examined. No new complaints. No overnight events - Objective Resuscitation Status - Order Detail: 10/11/18 23:53 Resuscitation Status Routine Resuscitation Status: DNAR: NO Resuscitation Discussed with: as per the patient's MAR Reviewed: Yes Vital Signs & Weight: Vital Signs (12 hours) Temp Pulse Resp BP Pulse Ox 10/12/18 08:33 99.1 F 83 16 117/56 L 94 L 10/12/18 04:40 98.0 F 85 18 113/56 L 97 Weight Admit Weight 179 lb 1.6 oz Weight 179 lb 1.6 oz I&O: 10/11/18 10/12/18 10/13/18 06:59 06:59 06:59 Intake Total 100 Output Total 200 Balance -100 Result Diagrams: 10/12/18 09:32 10/12/18 09:32 EKG Reviewed by me: Yes Phys Exam - Physical Examination Constitutional: NAD HEENT: PERRLA, moist MMs, sclera anicteric Neck: no JVD, supple Respiratory: no wheezing, no rales, no rhonchi Cardiovascular: RRR, no significant murmur, no rub Gastrointestinal: soft, non-tender, no distention, positive bowel sounds Musculoskeletal: no edema, pulses present Neurological: non-focal, normal sensation, moves all 4 limbs Psychiatric: normal affect, A&O x 3 Skin: no rash, normal turgor Dx/Plan (1) MALENA (acute kidney injury) Code(s): N17.9 - ACUTE KIDNEY FAILURE, UNSPECIFIED Status: Acute (2) Demand ischemia of myocardium Code(s): I24.8 - OTHER FORMS OF ACUTE ISCHEMIC HEART DISEASE Status: Acute (3) Lactic acidosis Code(s): E87.2 - ACIDOSIS Status: Acute (4) Sepsis Code(s): A41.9 - SEPSIS, UNSPECIFIED ORGANISM Status: Acute (5) Atrial fibrillation Code(s): I48.91 - UNSPECIFIED ATRIAL FIBRILLATION Status: Chronic (6) Chronic anticoagulation Code(s): Z79.01 - PRISON (CURRENT) USE OF ANTICOAGULANTS Status: Chronic (7) Chronic systolic heart failure, ACC/AHA stage C Code(s): I50.22 - CHRONIC SYSTOLIC (CONGESTIVE) HEART FAILURE Status: Chronic (8) Dementia Code(s): F03.90 - UNSPECIFIED DEMENTIA WITHOUT BEHAVIORAL DISTURBANCE Status: Chronic (9) Macrocytic anemia Code(s): D53.9 - NUTRITIONAL ANEMIA, UNSPECIFIED Status: Chronic (10) Severe mitral regurgitation by prior echocardiogram Code(s): I34.0 - NONRHEUMATIC MITRAL (VALVE) INSUFFICIENCY Status: Chronic (11) Severe tricuspid regurgitation by prior echocardiogram Code(s): I07.1 - RHEUMATIC TRICUSPID INSUFFICIENCY Status: Chronic - Plan cont current plan of care, plan discussed w/ family, continue antibiotics * medication reviewed as below * symptomatic treatment * continue current iv antibiotics as per below * discussed with * follow culture * repeat labs tomorrow. Review of Systems - Review of Systems ENT: negative: Ear Pain, Ear Discharge, Nose Pain, Nose Discharge, Nose Congestion, Mouth Pain, Mouth Swelling, Throat Pain, Throat Swelling, Other Respiratory: negative: Cough, Dry, Shortness of Breath, Hemoptysis, SOB with Excertion, Pleuritic Pain, Sputum, Wheezing Cardiovascular: negative: chest pain, palpitations, orthopnea, paroxysmal nocturnal dyspnea, edema, light headedness, other Gastrointestinal: negative: Nausea, Vomiting, Abdominal Pain, Diarrhea, Constipation, Melena, Hematochezia, Other Genitourinary: negative: Dysuria, Frequency, Incontinence, Hematuria, Retention , Other Musculoskeletal: negative: Neck Pain, Shoulder Pain, Arm Pain, Back Pain, Hand Pain, Leg Pain, Foot Pain, Other - Medications/Allergies Allergies/Adverse Reactions: Allergies Allergy/AdvReac Type Severity Reaction Status Date / Time Yeast Allergy Verified 09/16/18 13:50 Medications: Current Medications Acetaminophen (Tylenol) 650 mg PO Q4H PRN PRN Reason: Headache/Fever/Mild Pain (1-3) Last Admin: 10/12/18 08:29 Dose: 650 mg Acidophilus (Floranex) 1 tab PO DAILY [facility] Last Admin: 10/12/18 10:16 Dose: 1 tab Apixaban (Eliquis) 5 mg PO BID [facility] Last Admin: 10/12/18 08:27 Dose: 5 mg Aspirin (Ecotrin) 81 mg PO DAILY [facility] Last Admin: 10/12/18 08:28 Dose: Not Given Atorvastatin Calcium (Lipitor) 20 mg PO [facility] Cyanocobalamin (Vitamin B-12) 1,000 mcg PO DAILY [facility] Last Admin: 10/12/18 10:16 Dose: 1,000 mcg Folic Acid (Folvite) 1 mg PO DAILY [facility] Last Admin: 10/12/18 10:15 Dose: 1 mg Piperacillin Sod/Tazobactam (Sod 3.375 gm/ Sodium Chloride) 100 mls @ 200 mls/ hr IVPB Q6HR [facility] Last Admin: 10/12/18 12:56 Dose: 100 mls Vancomycin HCl 1 gm/ Device 200 mls @ 200 mls/hr IVPB Q12HR [facility] Last Admin: 10/12/18 08:36 Dose: 200 mls Iron/Minerals/Multivitamins (Theragran M) 1 tab PO DAILY [facility] Last Admin: 10/12/18 10:16 Dose: 1 tab Midodrine (Proamatine) 10 mg PO TID-WM [facility] Last Admin: 10/12/18 12:55 Dose: 10 mg Phenazopyridine HCl (Azo Standard) 97.5 mg PO PC [facility] Last Admin: 10/12/18 12:55 Dose: 97.5 mg Ropinirole HCl (Requip) 0.5 mg PO HS [facility] Senna/Docusate Sodium (Senokot S) 1 tab PO DAILY [facility] Last Admin: 10/12/18 10:16 Dose: 1 tab
[2018-10-12] MEDS: rOPINIRole HCl 0.5 MG TAB PO SCH (21:53)
[2018-10-12] MEDS: Atorvastatin Calcium 20 MG TAB PO SCH (21:53)
[2018-10-13] MEDS: Piperacillin/Tazobactam 3.375 GM in Sodium Chloride 0.9% 100 ML IVPB SCH ×5 (00:26→23:58)
[2018-10-13 06:42] LABS: #Eosinphils 0.1 thou/uL (0.0-0.7); #Lymphocytes 2.1 thou/uL (1.20-3.40); #Monocytes 0.4 thou/uL (0.11-0.59); #Neutrophils 6.1 thou/uL (1.40-6.50); %Basophils 0.2 % (0.0-1.0); %Lymphocytes 23.8 % (21.0-51.0); %Monocytes 4.4 % (0.0-10.0); %Neutrophils 70.6 % (42.0-75.0); Hemoglobin 10.2 g/dL (14.0-18.0); Mean Corpuscular HGB CONC 31.6 g/dL (32.0-36.0); Mean Corpuscular Hemoglobin 32.9 pg (27.0-31.0); Mean Platelet Volume 7.8 fL (7.4-10.4); Platelet Count 167 thou/uL (130-400); RBC Distribution Width 13.7 % (11.5-14.5); Red Blood Cell (RBC) Count 3.11 mill/uL (4.70-6.10); White Blood Cell (WBC) Count 8.7 thou/uL (4.8-10.8)
[2018-10-13 06:59] LABS: ALT (SGPT) 12 U/L (8-55); AST (SGOT) 15 U/L (5-34); Albumin 2.5 g/dL (3.4-4.8); Alkaline Phosphatase 46 U/L (40-150); Anion Gap 10 mmol/L (10-20); BUN (Urea Nitrogen) 15 mg/dL (8.4-25.7); Bilirubin, Total 0.3 mg/dL (0.2-1.2); Calc. Creatinine Clearance 55 mL/min (70-130); Calcium 8.5 mg/dL (7.8-10.44); Carbon Dioxide 29 mmol/L (23-31); Chloride 104 mmol/L (98-107); Estimated GFR-MDRD 60; Globulin 3.8 g/dL (2.4-3.5); Glucose 105 mg/dL (83-110); Protein, Total 6.3 g/dL (5.8-8.1); Sodium 139 mmol/L (136-145)
[2018-10-13] MEDS: Senokot S 8.6-50 MG TAB PO SCH (08:42)
[2018-10-13] MEDS: Midodrine HCl 5 MG TAB PO SCH ×3 (08:42→17:55)
[2018-10-13] MEDS: Folic Acid 1 MG TAB PO SCH (08:43)
[2018-10-13] MEDS: Apixaban 5 MG TAB PO SCH ×2 (08:43→20:30)
[2018-10-13] MEDS: Lactinex Tablet PO SCH (08:43)
[2018-10-13] MEDS: Cyanocobalamin (Vitamin B-12) 1,000 MCG TAB PO SCH (08:43)
[2018-10-13] MEDS: Phenazopyridine HCl 97.5 MG TABLET PO SCH ×3 (08:43→17:55)
[2018-10-13] MEDS: Multivitamin W/ Minerals 1 TAB PO SCH (08:43)
[2018-10-13] MEDS: Aspirin 81 mg Enteric Coated Tablet PO SCH (08:44)
[2018-10-13] MEDS: Vancomycin HCl 1 GM in Premix Bag 1 BAG IVPB SCH ×2 (08:44→20:30)
--- NOTE | 2018-10-13 10:09 | PDOC.PN ---
- Subjective Encounter Start Date: 10/13/18 Encounter Start Time: 08:00 Patient seen and examined. No new complaints. No overnight events he has no fever so far - Objective Resuscitation Status - Order Detail: 10/11/18 23:53 Resuscitation Status Routine Resuscitation Status: DNAR: NO Resuscitation Discussed with: as per the patient's MAR Reviewed: Yes Vital Signs & Weight: Vital Signs (12 hours) Temp Pulse Resp BP Pulse Ox 10/13/18 08:35 99.8 F H 86 16 109/60 94 L 10/13/18 04:00 99.1 F 86 16 114/62 93 L Weight Admit Weight 179 lb 1.6 oz Weight 179 lb 1.6 oz I&O: 10/12/18 10/13/18 10/14/18 06:59 06:59 06:59 Intake Total 100 1644 Output Total 200 1550 Balance -100 94 Result Diagrams: 10/13/18 05:42 10/13/18 05:42 EKG Reviewed by me: Yes (pacing) Phys Exam - Physical Examination Constitutional: NAD HEENT: PERRLA, moist MMs, sclera anicteric Neck: no JVD, supple Respiratory: no wheezing, no rales, no rhonchi Cardiovascular: RRR, no significant murmur, no rub Gastrointestinal: soft, non-tender, no distention, positive bowel sounds Musculoskeletal: no edema, pulses present Neurological: non-focal, normal sensation, moves all 4 limbs Lymphatic: no nodes Psychiatric: normal affect, A&O x 3 Skin: no rash, normal turgor Dx/Plan (1) MALENA (acute kidney injury) Code(s): N17.9 - ACUTE KIDNEY FAILURE, UNSPECIFIED Status: Resolved (2) Demand ischemia of myocardium Code(s): I24.8 - OTHER FORMS OF ACUTE ISCHEMIC HEART DISEASE Status: Acute (3) Lactic acidosis Code(s): E87.2 - ACIDOSIS Status: Resolved (4) Sepsis Code(s): A41.9 - SEPSIS, UNSPECIFIED ORGANISM Status: Acute (5) Atrial fibrillation Code(s): I48.91 - UNSPECIFIED ATRIAL FIBRILLATION Status: Chronic (6) Chronic anticoagulation Code(s): Z79.01 - RECOVERY ASSISTANT (CURRENT) USE OF ANTICOAGULANTS Status: Chronic (7) Chronic systolic heart failure, ACC/AHA stage C Code(s): I50.22 - CHRONIC SYSTOLIC (CONGESTIVE) HEART FAILURE Status: Chronic (8) Dementia Code(s): F03.90 - UNSPECIFIED DEMENTIA WITHOUT BEHAVIORAL DISTURBANCE Status: Chronic (9) Macrocytic anemia Code(s): D53.9 - NUTRITIONAL ANEMIA, UNSPECIFIED Status: Chronic (10) Severe mitral regurgitation by prior echocardiogram Code(s): I34.0 - NONRHEUMATIC MITRAL (VALVE) INSUFFICIENCY Status: Chronic (11) Severe tricuspid regurgitation by prior echocardiogram Code(s): I07.1 - RHEUMATIC TRICUSPID INSUFFICIENCY Status: Chronic - Plan cont current plan of care, plan discussed w/ family, continue antibiotics * continue empiric antibiotics with vancomycin and zosyn * so far culture negative * discussed with * medication reviewed as below * symptomatic treatment. Review of Systems - Review of Systems ENT: negative: Ear Pain, Ear Discharge, Nose Pain, Nose Discharge, Nose Congestion, Mouth Pain, Mouth Swelling, Throat Pain, Throat Swelling, Other Respiratory: negative: Cough, Dry, Shortness of Breath, Hemoptysis, SOB with Excertion, Pleuritic Pain, Sputum, Wheezing Cardiovascular: negative: chest pain, palpitations, orthopnea, paroxysmal nocturnal dyspnea, edema, light headedness, other Gastrointestinal: negative: Nausea, Vomiting, Abdominal Pain, Diarrhea, Constipation, Melena, Hematochezia, Other Genitourinary: negative: Dysuria, Frequency, Incontinence, Hematuria, Retention , Other Musculoskeletal: negative: Neck Pain, Shoulder Pain, Arm Pain, Back Pain, Hand Pain, Leg Pain, Foot Pain, Other - Medications/Allergies Allergies/Adverse Reactions: Allergies Allergy/AdvReac Type Severity Reaction Status Date / Time Yeast Allergy Verified 09/16/18 13:50 Medications: Current Medications Acetaminophen (Tylenol) 650 mg PO Q4H PRN PRN Reason: Headache/Fever/Mild Pain (1-3) Last Admin: 10/12/18 08:29 Dose: 650 mg Acidophilus (Floranex) 1 tab PO DAILY [facility] Last Admin: 10/13/18 08:43 Dose: 1 tab Apixaban (Eliquis) 5 mg PO BID [facility] Last Admin: 10/13/18 08:43 Dose: 5 mg Aspirin (Ecotrin) 81 mg PO DAILY [facility] Last Admin: 10/13/18 08:44 Dose: Not Given Atorvastatin Calcium (Lipitor) 20 mg PO [facility] Last Admin: 10/12/18 21:53 Dose: 20 mg Cyanocobalamin (Vitamin B-12) 1,000 mcg PO DAILY [facility] Last Admin: 10/13/18 08:43 Dose: 1,000 mcg Folic Acid (Folvite) 1 mg PO DAILY [facility] Last Admin: 10/13/18 08:43 Dose: 1 mg Piperacillin Sod/Tazobactam (Sod 3.375 gm/ Sodium Chloride) 100 mls @ 200 mls/ hr IVPB Q6HR [facility] Last Admin: 10/13/18 05:56 Dose: 100 mls Vancomycin HCl 1 gm/ Device 200 mls @ 200 mls/hr IVPB Q12HR [facility] Last Admin: 10/13/18 08:44 Dose: 200 mls Iron/Minerals/Multivitamins (Theragran M) 1 tab PO DAILY [facility] Last Admin: 10/13/18 08:43 Dose: 1 tab Midodrine (Proamatine) 10 mg PO TID-[facility] Last Admin: 10/13/18 08:42 Dose: 10 mg Pantoprazole Sodium (Protonix) 40 mg PO DAILY [facility] Last Admin: 10/13/18 08:43 Dose: 40 mg Phenazopyridine HCl (Azo Standard) 97.5 mg PO PC [facility] Last Admin: 10/13/18 08:43 Dose: 97.5 mg Quetiapine Fumarate (Seroquel) 12.5 mg PO HSPRN PRN PRN Reason: Insomnia Ropinirole HCl (Requip) 0.5 mg PO HS [facility] Last Admin: 10/12/18 21:53 Dose: 0.5 mg Senna/Docusate Sodium (Senokot S) 1 tab PO DAILY [facility] Last Admin: 10/13/18 08:42 Dose: 1 tab
--- NOTE | 2018-10-13 12:05 | EKG ---
Test Reason : Blood Pressure : / mmHG Vent. Rate : 087 BPM Atrial Rate : 092 BPM P-R Int : 000 ms QRS Dur : 182 ms QT Int : 466 ms P-R-T Axes : 000 -16 064 degrees QTc Int : 560 ms Ventricular-paced rhythm with occasional Premature ventricular complexes Abnormal ECG Confirmed by REINA RAMON DO ([id number]), photographic editor HARPREET FREGOSO ([id number]) on 10/13/2018 12:05:03 PM Referred By: Confirmed By:REINA RAMON DO
[2018-10-13] MEDS: rOPINIRole HCl 0.5 MG TAB PO SCH (20:30)
[2018-10-13] MEDS: Atorvastatin Calcium 20 MG TAB PO SCH (20:30)
[2018-10-13] MEDS: Sodium Chloride 0.9% 10 ML ONE (23:58)
[2018-10-14] MEDS: Piperacillin/Tazobactam 3.375 GM in Sodium Chloride 0.9% 100 ML IVPB SCH ×4 (05:16→23:24)
[2018-10-14] MEDS: Aspirin 81 mg Enteric Coated Tablet PO SCH (08:41)
[2018-10-14] MEDS: Vancomycin HCl 1 GM in Premix Bag 1 BAG IVPB SCH ×2 (08:42→21:02)
[2018-10-14] MEDS: Phenazopyridine HCl 97.5 MG TABLET PO SCH ×3 (08:43→17:30)
[2018-10-14] MEDS: Senokot S 8.6-50 MG TAB PO SCH (08:43)
[2018-10-14] MEDS: Lactinex Tablet PO SCH (08:43)
[2018-10-14] MEDS: Midodrine HCl 5 MG TAB PO SCH ×3 (08:43→17:30)
[2018-10-14] MEDS: Cyanocobalamin (Vitamin B-12) 1,000 MCG TAB PO SCH (08:43)
[2018-10-14] MEDS: Apixaban 5 MG TAB PO SCH ×2 (08:43→21:07)
[2018-10-14] MEDS: Multivitamin W/ Minerals 1 TAB PO SCH (08:43)
[2018-10-14] MEDS: Folic Acid 1 MG TAB PO SCH (08:44)
[2018-10-14] MEDS: Sodium Chloride 0.9% 10 ML ONE (08:44)
--- NOTE | 2018-10-14 09:44 | PDOC.PN ---
- Subjective Encounter Start Date: 10/14/18 Encounter Start Time: 08:20 Patient seen and examined. No new complaints. No overnight events - Objective Resuscitation Status - Order Detail: 10/11/18 23:53 Resuscitation Status Routine Resuscitation Status: DNAR: NO Resuscitation Discussed with: as per the patient's MAR Reviewed: Yes Vital Signs & Weight: Vital Signs (12 hours) Temp Pulse Resp BP Pulse Ox 10/14/18 08:39 98.7 F 88 16 109/56 L 95 Weight Admit Weight 179 lb 1.6 oz Weight 178 lb I&O: 10/13/18 10/14/18 10/15/18 06:59 06:59 06:59 Intake Total 1644 1927 Output Total 1550 895 Balance 94 1032 Result Diagrams: 10/13/18 05:42 10/13/18 05:42 EKG Reviewed by me: Yes (pacing) Phys Exam - Physical Examination Constitutional: NAD HEENT: PERRLA, moist MMs, sclera anicteric Neck: no JVD, supple Respiratory: no wheezing, no rales, no rhonchi Cardiovascular: RRR, no significant murmur, no rub Gastrointestinal: soft, non-tender, no distention, positive bowel sounds Musculoskeletal: no edema, pulses present Neurological: non-focal, normal sensation, moves all 4 limbs Lymphatic: no nodes Psychiatric: normal affect, A&O x 3 Skin: no rash, normal turgor Dx/Plan (1) MALENA (acute kidney injury) Code(s): N17.9 - ACUTE KIDNEY FAILURE, UNSPECIFIED Status: Resolved (2) Demand ischemia of myocardium Code(s): I24.8 - OTHER FORMS OF ACUTE ISCHEMIC HEART DISEASE Status: Acute (3) Lactic acidosis Code(s): E87.2 - ACIDOSIS Status: Resolved (4) Sepsis Code(s): A41.9 - SEPSIS, UNSPECIFIED ORGANISM Status: Acute (5) Atrial fibrillation Code(s): I48.91 - UNSPECIFIED ATRIAL FIBRILLATION Status: Chronic (6) Chronic anticoagulation Code(s): Z79.01 - SHELTER (CURRENT) USE OF ANTICOAGULANTS Status: Chronic (7) Chronic systolic heart failure, ACC/AHA stage C Code(s): I50.22 - CHRONIC SYSTOLIC (CONGESTIVE) HEART FAILURE Status: Chronic (8) Dementia Code(s): F03.90 - UNSPECIFIED DEMENTIA WITHOUT BEHAVIORAL DISTURBANCE Status: Chronic (9) Macrocytic anemia Code(s): D53.9 - NUTRITIONAL ANEMIA, UNSPECIFIED Status: Chronic (10) Severe mitral regurgitation by prior echocardiogram Code(s): I34.0 - NONRHEUMATIC MITRAL (VALVE) INSUFFICIENCY Status: Chronic (11) Severe tricuspid regurgitation by prior echocardiogram Code(s): I07.1 - RHEUMATIC TRICUSPID INSUFFICIENCY Status: Chronic - Plan cont current plan of care, plan discussed w/ family, continue antibiotics * medication reviewed as below * symptomatic treatment * continue one more day antibiotics * will plan for discharge tomorrow * so far culture is unremarkable, 1/2 positive is likely due to contaminant. Review of Systems - Review of Systems ENT: negative: Ear Pain, Ear Discharge, Nose Pain, Nose Discharge, Nose Congestion, Mouth Pain, Mouth Swelling, Throat Pain, Throat Swelling, Other Respiratory: negative: Cough, Dry, Shortness of Breath, Hemoptysis, SOB with Excertion, Pleuritic Pain, Sputum, Wheezing Cardiovascular: negative: chest pain, palpitations, orthopnea, paroxysmal nocturnal dyspnea, edema, light headedness, other Gastrointestinal: negative: Nausea, Vomiting, Abdominal Pain, Diarrhea, Constipation, Melena, Hematochezia, Other Genitourinary: negative: Dysuria, Frequency, Incontinence, Hematuria, Retention , Other Musculoskeletal: negative: Neck Pain, Shoulder Pain, Arm Pain, Back Pain, Hand Pain, Leg Pain, Foot Pain, Other - Medications/Allergies Allergies/Adverse Reactions: Allergies Allergy/AdvReac Type Severity Reaction Status Date / Time Yeast Allergy Verified 09/16/18 13:50 Medications: Current Medications Acetaminophen (Tylenol) 650 mg PO Q4H PRN PRN Reason: Headache/Fever/Mild Pain (1-3) Last Admin: 10/12/18 08:29 Dose: 650 mg Acidophilus (Floranex) 1 tab PO DAILY [facility] Last Admin: 10/14/18 08:43 Dose: 1 tab Apixaban (Eliquis) 5 mg PO BID [facility] Last Admin: 10/14/18 08:43 Dose: 5 mg Aspirin (Ecotrin) 81 mg PO DAILY [facility] Last Admin: 10/14/18 08:41 Dose: Not Given Atorvastatin Calcium (Lipitor) 20 mg PO HS [facility] Last Admin: 10/13/18 20:30 Dose: 20 mg Cyanocobalamin (Vitamin B-12) 1,000 mcg PO DAILY [facility] Last Admin: 10/14/18 08:43 Dose: 1,000 mcg Folic Acid (Folvite) 1 mg PO DAILY [facility] Last Admin: 10/14/18 08:44 Dose: 1 mg Piperacillin Sod/Tazobactam (Sod 3.375 gm/ Sodium Chloride) 100 mls @ 200 mls/ hr IVPB Q6HR [facility] Last Admin: 10/14/18 05:16 Dose: 100 mls Vancomycin HCl 1 gm/ Device 200 mls @ 200 mls/hr IVPB Q12HR [facility] Last Admin: 10/14/18 08:42 Dose: 200 mls Iron/Minerals/Multivitamins (Theragran M) 1 tab PO DAILY [facility] Last Admin: 10/14/18 08:43 Dose: 1 tab Midodrine (Proamatine) 10 mg PO TID[facility] Last Admin: 10/14/18 08:43 Dose: 10 mg Pantoprazole Sodium (Protonix) 40 mg PO DAILY [facility] Last Admin: 10/14/18 08:43 Dose: 40 mg Phenazopyridine HCl (Azo Standard) 97.5 mg PO PC [facility] Last Admin: 10/14/18 08:43 Dose: 97.5 mg Quetiapine Fumarate (Seroquel) 12.5 mg PO HSPRN PRN PRN Reason: Insomnia Ropinirole HCl (Requip) 0.5 mg PO HS [facility] Last Admin: 10/13/18 20:30 Dose: 0.5 mg Senna/Docusate Sodium (Senokot S) 1 tab PO DAILY [facility] Last Admin: 10/14/18 08:43 Dose: 1 tab
[2018-10-14] MEDS: Atorvastatin Calcium 20 MG TAB PO SCH (21:07)
[2018-10-14] MEDS: rOPINIRole HCl 0.5 MG TAB PO SCH (21:07)
[2018-10-15] MEDS: Piperacillin/Tazobactam 3.375 GM in Sodium Chloride 0.9% 100 ML IVPB SCH (05:24)
[2018-10-15] MEDS ORDERED: Sodium Chloride 0.9% 10 ML ONE (09:19)
--- NOTE | 2018-10-15 09:23 | PQF ---
MAILE PROCTOR, CARIN GUERRERO MD [id number] [facility] [id number] CLINICAL DOCUMENTATION IMPROVEMENT CLARIFICATION FORM: ICD-10 Updated PLEASE DO AN ADDENDUM TO THE PROGRESS NOTE WITH ANY DOCUMENTATION UPDATES OR ADDITIONS AND CARRY THROUGH TO DC SUMMARY. THANK YOU. DATE: 10/15/2018 ATTN: DR. Reilly LINK Please exercise your independent, professional judgment in responding to the clarification form. Clinical indicators are provided on the bottom of this form for your review. Please check appropriate box(s) to clarify if the following diagnosis has been ruled in or ruled out: Pneumonia [ ] Ruled in diagnosis [ ] Continue to treat [ ] Resolved [ ] Ruled out diagnosis [ x ] Other diagnosis __acute bronchitis [ ] Unable to determine In addition, please specify: Present on Admission (POA): [ x ] Yes [ ] No [ ] Unable to determine For continuity of documentation, please document condition throughout progress notes and discharge summary. Thank You. CLINICAL INDICATORS - SIGNS / SYMPTOMS / LABS H&P (MILDRED) 10/11: THE PATIENT HAD A CXR, WHICH BY MY READING, ...APPEARED TO HAVE SOME INTERSTITIAL INFILTRATES ON THE LEFT GREATER THAN THE RIGHT. ASSESSMENT: 1) ...SEPSIS OF UNKNOWN ORIGIN. ...CXR IS SLIGHTLY SUSPICIOUS FOR POSSIBLE INFILTRATE & HE HAS HAD A COUGH, SO IT IS POSSIBLE HE COULD HAVE AN EARLY PNEUMONIA. ...WE WILL CONTINUE [facility]-S[facility] ANTIBIOTICS TO COVER FOR AT THIS POINT, A HOSPITAL-ACQUIRED PNEUMONIA LIKE SETTING. NO FURTHER MENTION OF SEPSIS TO DATE RISK: SEPSIS ADVANCED AGE (83) TREATMENT: IV ANTIBIOTICS (ZOSYN & VANCOMYCIN 10/10 - PRESENT) THANK YOU ! [employer] (This form is maintained as a part of the permanent medical record) 2014 [employer]. All Rights Reserved STORMY [email or web address] [phone] MTDD
[2018-10-15] MEDS: Vancomycin HCl 1 GM in Premix Bag 1 BAG IVPB SCH (09:27)
[2018-10-15] MEDS: Cyanocobalamin (Vitamin B-12) 1,000 MCG TAB PO SCH (09:28)
[2018-10-15] MEDS: Apixaban 5 MG TAB PO SCH (09:28)
[2018-10-15] MEDS: Lactinex Tablet PO SCH (09:28)
[2018-10-15] MEDS: Senokot S 8.6-50 MG TAB PO SCH (09:28)
[2018-10-15] MEDS: Phenazopyridine HCl 97.5 MG TABLET PO SCH (09:28)
[2018-10-15] MEDS: Multivitamin W/ Minerals 1 TAB PO SCH (09:29)
[2018-10-15] MEDS: Midodrine HCl 5 MG TAB PO SCH (09:29)
[2018-10-15] MEDS: Folic Acid 1 MG TAB PO SCH (09:29)
[2018-10-15] MEDS: Aspirin 81 mg Enteric Coated Tablet PO SCH (09:30)
--- NOTE | 2018-10-15 11:06 | DIS ---
DATE OF ADMISSION: 10/11/2018 DATE OF DISCHARGE: 10/15/2018 PRIMARY CARE PHYSICIAN: Gabo Padilla MD DISCHARGE DISPOSITION: Home. PRIMARY DISCHARGE DIAGNOSES: 1. Sepsis due to acute bronchitis. 2. Demand ischemia of myocardium. 3. Acute kidney injury, improved. 4. Lactic acidosis, improved. SECONDARY DISCHARGE DIAGNOSES: 1. Severe tricuspid regurgitation. 2. Severe mitral valve regurgitation. 3. Macrocytic anemia. 4. Dementia. 5. Chronic systolic heart failure, stage 3. 6. Chronic anticoagulation. 7. Atrial fibrillation. 8. Pacemaker. PRIMARY PROCEDURE/OPERATION: None. RADIOLOGICAL INVESTIGATION: CT brain, negative. Chest x-ray was unremarkable. SIGNIFICANT LABORATORIES: WBC 8.7, hemoglobin 10.2, and platelets 167. BNP normal. LFT normal. Urinalysis unremarkable. Blood cultures one out of two was positive for Micrococcus which we attributed to be due to contaminant. Urine culture negative. Influenza negative. DISCHARGE MEDICATIONS: 1. Eliquis 5 mg p.o. b.i.d. 2. Cetrizine 10 mg daily. 3. Vitamin B12, 1000 mcg p.o. daily. 4. Lasix 20 mg daily. 5. Probiotic one capsule daily. 6. Midodrine 10 mg t.i.d. 7. Multivitamin one tablet p.o. daily. 8. Potassium chloride 20 mEq p.o. daily. 9. Ropinirole 0.5 mg at bedtime. 10. Senokot one tablet twice daily. 11. Augmentin 875 mg p.o. b.i.d. for 5 days. CONTRAINDICATION: The patient is not on SHANI inhibitor or ARB in view of systolic heart failure because of low blood pressure. CODE STATUS: DNR. INPATIENT MANAGER TRANSPORTATION: None. ALLERGIES: YEAST. HOSPITAL COURSE: An 83-year-old male who was admitted by Dr. Adams. Please see her H and P for further details. The patient was having fever. He was meeting sepsis criteria. He was admitted to the hospital. Initially, we suspected bronchitis with urinalysis normal. His culture remained negative. He had demand ischemia and acute kidney injury that was improved with treatment. His culture one out of two is positive, which is contaminant. His urine culture is negative. He is afebrile while in hospital. He was given vancomycin and Zosyn while in hospital. Now, he is back to normal and he will continue all his previous medication. The patient has underlying congestive heart failure and even before admission, the patient was not on any SHANI inhibitor or ARB. The patient has chronic hypotension and that is why the patient is not tolerating all those medications. He has an appointment with Cardiology today, and they will decide further cardiac medication if needs to be modified today. Overall, the patient is medically stable for discharge. The patient was seen and examined at bedside today. His examination is unremarkable. Plan of care discussed with his . Job ID: [id number]
[2018-10-15 12:05] VITALS: BP 118/67; TEMP 97.4
== END 2018-10-15 12:05 | disposition home or self-care (01) | DRG 872 ==
LOC: ERS 21:39 → ERHOLD 22:56 → 2NO 10-12 00:21
PROVIDERS: ADMIT Internal Medicine; ATTEND Internal Medicine
DX: A41.9 Sepsis, unspecified organism (principal); I50.32 Chronic diastolic (congestive) heart failure; I24.8 Other forms of acute ischemic heart disease; N17.9 Acute kidney failure, unspecified; E87.2 Acidosis; J20.9 Acute bronchitis, unspecified; F03.90 Unspecified dementia, unspecified severity, without behavioral disturbance, psychotic disturbance, mood disturbance, and anxiety; I48.91 Unspecified atrial fibrillation; Z66 Do not resuscitate; K57.90 Diverticulosis of intestine, part unspecified, without perforation or abscess without bleeding; I07.1 Rheumatic tricuspid insufficiency; I34.0 Nonrheumatic mitral (valve) insufficiency; D53.9 Nutritional anemia, unspecified; Z79.01 Long term (current) use of anticoagulants; Z79.899 Other long term (current) drug therapy; Z95.0 Presence of cardiac pacemaker; Z82.49 Family history of ischemic heart disease and other diseases of the circulatory system
CPT/HCPCS: 36415; 70450; 71045; 80048; 80053; 81003; 81015; 82553; 83605; 83880; 84484; 85025; 87040; 87086; 87149; 87804; 93005; 96360; 96365; 96367; J2543; J3370; J7050

== ENCOUNTER 2019-03-11 16:32 | Outpatient (CLI) | payer MEDICARE ==
--- NOTE | 2019-03-11 16:56 | RAD ---
EXAM: XR Lumbar Spine 2 Or 3 View PROVIDED CLINICAL HISTORY: Back pain COMPARISON: None FINDINGS: 5 nonrib-bearing lumbar-type vertebral bodies are present. Slight retrolisthesis of L3 on L4. Lumbar alignment appears otherwise normal body heights appear preserved. Disc space narrowing and endplate degenerative changes are seen at L3-4. Lower lumbar spine facet arthritis changes are seen. Partially visualized pacer device wires and electronic device overlying the right upper quadrant/anterior abdomen. IMPRESSION: Lumbar spine degenerative changes as above
== END 2019-03-11 16:33 | disposition home or self-care (01) ==
LOC: RAD 16:32
PROVIDERS: ATTEND Chiropractor
DX: M54.42 Lumbago with sciatica, left side (principal); M47.816 Spondylosis without myelopathy or radiculopathy, lumbar region
CPT/HCPCS: 72100

== ENCOUNTER 2020-06-06 10:50 | Inpatient (IN) | payer MEDICARE ==
[2020-06-06 12:30] LABS: #Lymphocytes 0.5 thou/uL (1.20-3.40); #Monocytes 0.3 thou/uL (0.11-0.59); #Neutrophils 7.4 thou/uL (1.40-6.50); %Eosinophils 0.1 % (0.0-10.0); %Lymphocytes 5.9 % (21.0-51.0); %Neutrophils 90.1 % (42.0-75.0); Mean Corpuscular HGB CONC 33.1 g/dL (32.0-36.0); Mean Corpuscular Hemoglobin 34.9 pg (27.0-31.0); Mean Platelet Volume 9.6 fL (7.4-10.4); Platelet Count 123 thou/uL (130-400); RBC Distribution Width 13.2 % (11.5-14.5); Red Blood Cell (RBC) Count 3.43 mill/uL (4.70-6.10); White Blood Cell (WBC) Count 8.2 thou/uL (4.8-10.8)
[2020-06-06 12:39] LABS: Bilirubin 1+ (Negative); Blood, Urine 3+ (Negative); Clarity Clear (Clear); Glucose, Urine (Dipstick) Normal (Negative); Ketone, Urine Negative (Negative); Leukocyte Negative Leu/uL (Negative); Mucous/LPF 2+ LPF (<2+); Nitrite Negative (Negative); Protein, Urine (Dipstick) Greater than 600 mg/dL (Neg-Trace); Specific Gravity, Urine 1.049 (1.002-1.036); Squamous Epithelial 0-3 HPF (0-3); Urobilinogen 3 mg/dL (Less than 2)
[2020-06-06 12:40] LABS: ALT (SGPT) 20 U/L (8-55); AST (SGOT) 25 U/L (5-34); Albumin 2.3 g/dL (3.4-4.8); Alkaline Phosphatase 60 U/L (40-110); Anion Gap 16 mmol/L (10-20); BUN (Urea Nitrogen) 28 mg/dL (8.4-25.7); Bilirubin, Total 0.7 mg/dL (0.2-1.2); Calc. Creatinine Clearance 0 mL/min (70-130); Calcium 9.3 mg/dL (7.8-10.44); Carbon Dioxide 29 mmol/L (23-31); Chloride 102 mmol/L (98-107); Globulin 5.2 g/dL (2.4-3.5); Glucose 172 mg/dL (83-110); Potassium 4.9 mmol/L (3.5-5.1); Protein, Total 7.5 g/dL (5.8-8.1); Sodium 142 mmol/L (136-145)
[2020-06-06 12:47] LABS: Bacteria/HPF None Seen HPF (None Seen)
[2020-06-06 12:57] LABS: MDiff Complete? YES; Macrocytosis SLIGHT = 6-15 cells (100X) (0-5/hpf); Platelet Morphology Comment Appears Decreased; Polychromasia SLIGHT = 2-3 cells (100X) (0-2/hpf)
--- NOTE | 2020-06-06 13:03 | RAD ---
RADIOGRAPH CHEST 1 VIEW: DATE: 06/06/2020 TIME: 12:39 PM HISTORY: 84-year-old male with hypoxia COMPARISON: 12/12/2019 FINDINGS: New cardiomegaly. New heterogeneous hazy interstitial patchy infiltrates in bilateral upper, mid, and lower lung zones. New consolidation left lower lobe. Left subclavian pacemaker. IMPRESSION: 1: New bilateral heterogeneous interstitial infiltrates. 2. New left lower lobe consolidation 3. New cardiomegaly
--- NOTE | 2020-06-06 13:04 | RAD ---
Radiograph right hip 2 views: 06/06/2020 HISTORY: 84-year-old male with right hip pain FINDINGS: No fracture is identified. However, if symptoms do not improve, follow-up is recommended in 5-10 days . No dislocation. No significant hip joint space narrowing. IMPRESSION: No fracture identified
--- NOTE | 2020-06-06 13:05 | RAD ---
Radiograph pelvis one view: HISTORY: 84-year-old male with acute traumatic pelvic pain due to fall FINDINGS: Pelvic rings appear to be intact, with no evidence of displaced fracture. IMPRESSION: No fracture identified
--- NOTE | 2020-06-06 13:06 | RAD ---
Radiograph left hip 2 views: HISTORY: Acute traumatic left hip pain due to fall FINDINGS: Joint space maintained. Femoral head contour maintained. No high-grade DJD. No fracture identified. IMPRESSION: No fracture identified
[2020-06-06 13:16] LABS: CKMB 1.7 ng/mL (0-6.6)
[2020-06-06] MEDS ORDERED: Aspirin Chewable 81 MG TAB ONE (13:34)
[2020-06-06] MEDS ORDERED: Furosemide 40 MG/4 ML VIAL ONE (13:34)
[2020-06-06] MEDS ORDERED: Acetaminophen 500 MG TAB ONE (13:34)
[2020-06-06] MEDS ORDERED: Vancomycin 1 GM/200 ML BAG ONE (13:34)
[2020-06-06] MEDS ORDERED: Cefepime 2 GM VIAL ONE (13:34)
[2020-06-06] MEDS ORDERED: Aspirin 300 MG Suppository ONE (13:41)
[2020-06-06] MEDS ORDERED: Acetaminophen 325 MG TAB PO PRN (14:26)
[2020-06-06] MEDS ORDERED: PROVENTIL INHALER 6.7 G (200 INHALATIONS) INH PRN (15:10)
[2020-06-06 15:19] LABS: SARS-CoV-2 NAA Rapid Test Not Detected (NotDetected)
[2020-06-06 15:34] LABS: Lactic Acid 2.7 mmol/L (0.5-2.2)
[2020-06-06 15:47] LABS: Troponin I 0.301 ng/mL (< 0.028)
--- NOTE | 2020-06-06 16:08 | HP ---
PRIMARY CARE PHYSICIAN: Dr. Padilla. CHIEF COMPLAINT: Hypoxia. HISTORY OF PRESENT ILLNESS: Mr. Clemons is an 84-year-old man, who lives with his at [facility] and she is the primary caregiver. She reports that she noticed that this morning when he got up, he was having a harder time catching his breath. She says she watches his oxygen sats and yesterday they were about 93. Today, his O2 sats were in the 80s. EMS was called and she states that when they got there, he improved quite quickly when they put some oxygen on him. He sees one of the pulmonologists over at [facility] and last saw him on and he did not have any of these symptoms. He has a past medical history for bronchiectasis, congestive heart failure, AFib, A-flutter, and hypotension. His last echo done here was in August with an EF of 20% to 25%. reports that he sees a yacht builder in the [place] and his EF has improved since that time. He also has an underlying medical history for dementia, which says it gotten progressively worse over the last year. She reports that he has fallen multiple times over the last couple of weeks, but he has managed to avoid hitting his head. She said he always either catches himself or slides down the wall. He did fall on and fell on his buttocks and has been complaining of hip pain since that time. While in the emergency room, they x-rayed his pelvis and bilateral hips, which were negative for acute fractures. The patient reports that when they put some Bengay on the area that he complains about it, it does relieve the pain. reports that he normally has a low blood pressure. She reports that 90/50 is normal for him and he is on midodrine t.i.d. to help with his pressure. When he got to the emergency room today, blood pressure was 129/72 and his pO2 sats were 97 on 3 L of oxygen. He is currently at 96% on 1 L. While in the emergency room, chest x-ray shows an enlarged heart, left lower lobe consolidation, bilateral interstitial infiltrates. BNP= 3222. White blood cell count is 8.2, hemoglobin 12, hematocrit is 36.2, platelets 123. Lactic acid 2.4. His urine was also sent off for culture. He has some white blood cells and red blood cells, mucus, but no bacteria, no leukocytes, no nitrates. does report that Dr. Padilla told her that he has been spilling quite a bit of protein in his urine and that he is allowed to eat whatever she can feed him as he has not been able to keep much protein and he has some muscle wasting. Metabolic panel; BUN at 28, glucose 172, albumin at 2.3, globulin at 5.2. He also had a positive troponin at 0.311, which we will trend. He will be admitted to the telemetry unit for further management. REVIEW OF SYSTEMS: The patient reports cough; shortness of breath; hypoxia; frequent falls, last one 2 days ago. Denies fever or chills. All systems are reviewed and negative unless mentioned above or in HPI. PAST MEDICAL HISTORY: Please see HPI. PAST SURGICAL HISTORY: Appendectomy, cholecystectomy, has an AICD. PSYCHIATRIC HISTORY: Dementia. SOCIAL HISTORY: He lives in a long-term care facility, [facility] with his who takes care of him. She reports that they have not seen anybody at least in the last 3 weeks and was tested for COVID 2 weeks ago, which was negative. KNOWN ALLERGIES: Yeast. CURRENT MEDICATIONS: 1. Eliquis 5 mg p.o. b.i.d. 2. Midodrine 10 mg p.o. t.i.d. 3. Atorvastatin 20 mg p.o. once a day. 4. Vitamin B12 of 1000 mcg p.o. once a day. 5. Lasix 20 mg p.o. as needed. 6. Potassium chloride tabs as needed. PHYSICAL EXAMINATION: VITAL SIGNS: Blood pressure 131/72, pulse is 78, respiratory rate is 19, temperature is 98.8, pO2 sats are 96% on 1 L. CONSTITUTIONAL: He is pleasantly confused. Does answer some yes or no questions. He is oriented to person. HEAD: Atraumatic and normocephalic. EYES: Pupils are equally round and reactive to light. Extraocular muscles are intact. ENT: Mouth exam is normal. NECK: Trachea is midline. There is some JVD noted. RESPIRATORY: He is in mild respiratory distress. He has some rales upper lobes. Breath sounds are diminished to the left lower lobe. He has some scattered rhonchi. CARDIOVASCULAR: S1 and S2. Heart sounds are normal. ABDOMEN: Nontender. Bowel sounds are heard. BACK: Normal range of motion. No tenderness. EXTREMITIES: Lower extremities, he has normal range of motion. There is no pitting edema noted. NEUROLOGIC: He is oriented to person. SKIN: Warm and dry skin that is visualized. IMAGING STUDIES: EKG in the emergency room shows rate of 78, QRS 192, paced rhythm with a right bundle-branch block. He has T-waves anteriorly, but this is seen in his EKG in 2019. PLAN AND ASSESSMENT: 1. Acute respiratory failure with hypoxia: Left lower lobe pneumonia with a history of bronchiectasis and congestive heart failure. We will keep him on O2 to keep his O2 saturations above 92%. ER gave him cefepime, Levaquin, and vancomycin. We will continue the cefepime and vancomycin. Rapid COVID test is pending. We will add Lasix 20 IV daily, DuoNeb q.6 p.r.n. reports that the albuterol can exacerbate his dementia. ER gave him 40 mg of Lasix IV push, seems to have improved symptoms, we will start at 20mg daily and adjust as needed. 2. Svq-CL-lodzpxcjr myocardial infarction with a positive troponin. We will trend. Depending on troponin value, we will potentially ask Cardiology to consult. There are no EKG changes. Likely demand ischemia from the pneumonia. 3. History of A fib and is on eliquis, which we will continue. 4. Congestive heart failure exacerbation, please see #1. 5. Proteinuria. Chronic and we will monitor. We have added a regular diet as his PCP told the patient's he can eat what he would like. We have added request for Boost or protein drink to help add protein to his diet. 6. The patient is a DNR. is at the bedside and says he has been [id number] DNR as well. 7. Case discussed with Dr. French, who agrees with plan. 8. Hospital course dependent on clinical findings. Job ID: [id number] [facility]iva
[2020-06-06 19:13] LABS: Troponin I 0.343 ng/mL (< 0.028)
[2020-06-06 20:26] VITALS: BMI 20.5
[2020-06-06] MEDS ORDERED: Furosemide 40 MG/4 ML VIAL SLOW IVP SCH (21:00)
[2020-06-06] MEDS ORDERED: Furosemide 20 MG/2 ML VIAL SLOW IVP SCH (21:00)
--- NOTE | 2020-06-06 21:28 | RAD ---
XR Chest 1 View HISTORY: Respiratory distress COMPARISON: Earlier exam of 12:39 PM from same date FINDINGS: No significant interval change is seen since the earlier exam. IMPRESSION: Stable exam.
[2020-06-06] MEDS: Apixaban 5 MG TAB PO SCH (21:41)
[2020-06-07] MEDS: Cefepime 2 GM in Sodium Chloride 0.9% 100 ML IVPB SCH ×2 (01:42→14:39)
[2020-06-07] MEDS: Scopolamine 1.5 mg/72 hour Patch TD SCH (02:28)
[2020-06-07] MEDS ORDERED: Furosemide 40 MG/4 ML VIAL SLOW IVP SCH (02:30)
[2020-06-07 04:01] LABS: #Lymphocytes 0.4 thou/uL (1.20-3.40); #Monocytes 0.3 thou/uL (0.11-0.59); #Neutrophils 8.3 thou/uL (1.40-6.50); %Basophils 0.1 % (0.0-1.0); %Lymphocytes 3.9 % (21.0-51.0); %Monocytes 3.8 % (0.0-10.0); %Neutrophils 92.1 % (42.0-75.0); Hemoglobin 11.2 g/dL (14.0-18.0); Mean Corpuscular HGB CONC 31.6 g/dL (32.0-36.0); Mean Corpuscular Hemoglobin 33.5 pg (27.0-31.0); Mean Platelet Volume 10.2 fL (7.4-10.4); Platelet Count 106 thou/uL (130-400); RBC Distribution Width 13.3 % (11.5-14.5); Red Blood Cell (RBC) Count 3.35 mill/uL (4.70-6.10)
[2020-06-07 04:13] LABS: ALT (SGPT) 70 U/L (8-55); AST (SGOT) 102 U/L (5-34); Albumin 2.1 g/dL (3.4-4.8); Alkaline Phosphatase 51 U/L (40-110); Anion Gap 17 mmol/L (10-20); BUN (Urea Nitrogen) 39 mg/dL (8.4-25.7); Bilirubin, Total 0.6 mg/dL (0.2-1.2); Calc. Creatinine Clearance 30 mL/min (70-130); Calcium 8.8 mg/dL (7.8-10.44); Carbon Dioxide 26 mmol/L (23-31); Chloride 102 mmol/L (98-107); Globulin 4.9 g/dL (2.4-3.5); Glucose 156 mg/dL (83-110); Potassium 4.6 mmol/L (3.5-5.1); Sodium 140 mmol/L (136-145)
[2020-06-07] MEDS: Cyanocobalamin (Vitamin B-12) 1,000 MCG TAB PO SCH (08:39)
[2020-06-07] MEDS: Saccharomyces boulardii 250 MG CAP PO SCH (08:39)
[2020-06-07] MEDS: Folic Acid 1 MG TAB PO SCH (08:40)
[2020-06-07] MEDS: Famotidine 20 MG TAB PO SCH (08:40)
[2020-06-07] MEDS: Apixaban 5 MG TAB PO SCH ×2 (08:40→20:56)
[2020-06-07] MEDS: Midodrine HCl 5 MG TAB PO SCH ×3 (08:41→20:57)
[2020-06-07] MEDS ORDERED: Furosemide 20 MG/2 ML VIAL SLOW IVP SCH (09:00)
[2020-06-07] MEDS ORDERED: FLU VACC QS2020-21(65YR UP)/PF 240 MCG/0.7 ML SYRINGE IM ONE (09:00)
--- NOTE | 2020-06-07 10:52 | PDOC.HOSPP ---
- Subjective Encounter Date: 06/07/20 Encounter Time: 10:10 Subjective: Patient seen and examined bedside today, patient's is present bedside, patient is on BiPAP, patient is not able to communicate - Objective Vital Signs & Weight: Vital Signs (12 hours) Temp Pulse Resp BP Pulse Ox 06/07/20 08:05 70 32 H 100 06/07/20 07:41 97.6 F 06/07/20 03:44 97.7 F 06/07/20 03:32 99 06/07/20 03:23 70 31 H 98 06/07/20 01:40 99.2 F 77 28 H 122/58 L 97 06/07/20 00:00 98.4 F 76 28 H 107/62 93 L Weight Weight 151 lb 8 oz I&O: 06/06/20 06/07/20 06/08/20 06:59 06:59 06:59 Output Total 100 Balance -100 Result Diagrams: 06/07/20 03:08 06/07/20 03:08 Radiology Reviewed by me: Yes (Chest x-ray consistent with interstitial pneumonia) EKG Reviewed by me: Yes Hospitalist ROS - Review of Systems ROS unobtainable: due to mental status - Medication Medications: Active Medications Generic Name Dose Route Start Last Admin Trade Name Freq PRN Reason Stop Dose Admin Albuterol/Ipratropium 3 ml 06/06/20 20:36 06/06/20 22:45 Ipratropium/Albuterol Sulfate 3 Ml Neb NEB 3 ml Q6H PRN Administration SOB &/or Wheezing Apixaban 5 mg 06/06/20 21:00 06/06/20 21:41 Apixaban 5 Mg Tab PO Not Given BID JIMMY Cefepime HCl 2 gm/ Sodium 100 mls @ 200 mls/hr 06/07/20 02:00 06/07/20 01:42 Chloride IVPB 100 mls 0200,1400 JIMMY Administration Scopolamine 1.5 mg 06/07/20 03:00 06/07/20 02:28 Scopolamine 1.5 Mg/72 Hour Patch TD 1.5 mg Q3D JIMMY Administration - Exam General Appearance: ill appearing Eye: PERRL, anicteric sclera ENT: normocephalic atraumatic, no oropharyngeal lesions Neck: symmetric, no JVD, no thyromegaly Heart: no gallops, no rubs, irregular Respiratory: no wheezes, no ronchi Respiratory - other findings: Coarse breath sound bilateral Gastrointestinal: soft, non-distended, normal bowel sounds Extremities: no clubbing, no edema Skin: normal turgor, no lesions Musculoskeletal: generalized weakness, diffuse muscle atrophy Psychiatric: lethargic Hosp A/P (1) Sepsis Code(s): A41.9 - SEPSIS, UNSPECIFIED ORGANISM Status: Acute Qualifiers: Sepsis acute organ dysfunction status: with acute organ dysfunction Severe sepsis acute organ dysfunction type: acute renal failure Severe sepsis shock status: without septic shock (2) Pneumonia Code(s): J18.9 - PNEUMONIA, UNSPECIFIED ORGANISM Status: Acute Qualifiers: Pneumonia type: due to unspecified organism Lung location: unspecified part of lung (3) Lactic acidosis Code(s): E87.2 - ACIDOSIS Status: Acute (4) MALENA (acute kidney injury) Code(s): N17.9 - ACUTE KIDNEY FAILURE, UNSPECIFIED Status: Acute (5) Acute respiratory failure with hypoxia Code(s): J96.01 - ACUTE RESPIRATORY FAILURE WITH HYPOXIA Status: Acute (6) Demand ischemia of myocardium Code(s): I24.8 - OTHER FORMS OF ACUTE ISCHEMIC HEART DISEASE Status: Acute Plan: Type II myocardial infarction due to demand ischemia (7) Atrial fibrillation Code(s): I48.91 - UNSPECIFIED ATRIAL FIBRILLATION Status: Chronic Qualifiers: Atrial fibrillation type: persistent (not longstanding) Qualified Code(s): I48.19 - Other persistent atrial fibrillation; I48.1 - Persistent atrial fibrillation (8) Chronic anticoagulation Code(s): Z79.01 - GROUP HOME (CURRENT) USE OF ANTICOAGULANTS Status: Chronic (9) Chronic systolic heart failure, ACC/AHA stage C Code(s): I50.22 - CHRONIC SYSTOLIC (CONGESTIVE) HEART FAILURE Status: Chronic (10) Dementia Code(s): F03.90 - UNSPECIFIED DEMENTIA WITHOUT BEHAVIORAL DISTURBANCE Status: Chronic (11) Macrocytic anemia Code(s): D53.9 - NUTRITIONAL ANEMIA, UNSPECIFIED Status: Chronic (12) Severe mitral regurgitation by prior echocardiogram Code(s): I34.0 - NONRHEUMATIC MITRAL (VALVE) INSUFFICIENCY Status: Chronic (13) Severe tricuspid regurgitation by prior echocardiogram Code(s): I07.1 - RHEUMATIC TRICUSPID INSUFFICIENCY Status: Chronic (14) Thrombocytopenia Code(s): D69.6 - THROMBOCYTOPENIA, UNSPECIFIED Status: Chronic - Plan old records reviewed/req, plan discussed w/ family, muhammad catheter, continue antibiotics, respiratory therapy Plan DNR status confirmed with the patient's bedside Continue cefepime and vancomycin empirically for pneumonia For elevated troponin we will consult cardiology for their opinion Selected home medication will be given the patient able to take oral intake Speech therapy before we consider diet given his dementia and altered mental status Prognosis poor Start dextrose with NS at 50 mL/h, baseline maintenance fluid
[2020-06-07] MEDS: Vancomycin 1 GM in Premix Bag 1 BAG IVPB SCH (11:02)
[2020-06-07] MEDS: Dextrose 5 %-0.45 % NaCl 1,000 ML IV SCH (11:54)
[2020-06-07] MEDS: Atorvastatin Calcium 20 MG TAB PO SCH (20:56)
--- NOTE | 2020-06-07 23:40 | CON ---
DATE OF CONSULTATION: HISTORY OF PRESENT ILLNESS: Matias Clemons is an 84-year-old white male, admitted with increased shortness of breath and dementia. At the present time, he is on BiPAP and is fairly obtunded and could not provide any history. History is determined from looking at the old records. He was seen by Dr. Lorenzo in August 2018 when he had atrial fibrillation with rapid ventricular response and gastrointestinal bleeding. He has previously undergone atrial fibrillation ablation. During that admission, he did undergo transesophageal echo followed by electrical cardioversion. He has not seen Dr. Lorenzo in followup since he receives his care from a human resources operations director in the [place]. Apparently, his ejection fraction there has improved somewhat to 30% recently. Mr. Clemons is admitted today after his noted his O2 sats were in the mid 90s; however, his sats fell into the 80s and EMS was called. PAST MEDICAL HISTORY: Cardiomyopathy, atrial fibrillation with history of ablation and cardioversion, dementia. OPERATIONS: Atrial fibrillation ablation, appendectomy, cholecystectomy, and pacemaker placement. This is a biventricular pacemaker and it does not appear to have an atrial lead. MEDICATIONS: 1. Eliquis 5 mg b.i.d. 2. Lipitor 20 at bedtime. 3. Vitamin B12. 4. Furosemide 20 daily. 5. Midrin 10 mg t.i.d. 6. KCl 20 mEq daily. ALLERGIES: YEAST. SOCIAL HISTORY: Lives at [facility] with his . REVIEW OF SYSTEMS: Unobtainable. PHYSICAL EXAMINATION: VITAL SIGNS: Blood pressure 122/58, pulse of 70, paced rhythm on the monitor. HEENT: PERRL. NECK: Supple. CHEST: Reveals distant breath sounds with occasional crackles at the bases. CARDIOVASCULAR: S1 and S2 normal without any S3, S4, or murmurs. ABDOMEN: Normal bowel sounds. EXTREMITIES: Revealed no edema. NEUROLOGICAL: The patient is fairly unresponsive. LABORATORY DATA: EKG revealed biventricular pacing. Troponin I 0.343. Sodium 140, potassium 4.3, chloride 102, carbon dioxide 26, BUN 39, creatinine 1.77. CK-MB 1.7. BNP 3220.7. Chest x-ray revealed bilateral infiltrates and cardiomegaly. IMPRESSION: 1. Acute respiratory failure. This certainly could be due from his significant left ventricular dysfunction from the past or due to pneumonia. He is on vancomycin 1 g daily and cefepime. 2. Cardiomyopathy with reported last ejection fraction of 30%. 3. History of atrial fibrillation, status post ablation. He underwent electrical cardioversion in August 2018, but at the present time, I assume that he is probably back in atrial fibrillation. 4. Status post placement of biventricular pacemaker; however, this does not appear to have an atrial lead. 5. Hypercholesterolemia. 6. Dementia. PLAN: Echocardiogram will be performed to reassess left ventricular function. He is continued on broad-spectrum antibiotics. With his current clinical findings, certainly, his prognosis appears to be poor. Job ID: [id number] [facility]
[2020-06-08] MEDS: Cefepime 2 GM in Sodium Chloride 0.9% 100 ML IVPB SCH ×2 (01:25→17:16)
[2020-06-08 03:22] LABS: #Lymphocytes 0.9 thou/uL (1.20-3.40); #Monocytes 0.4 thou/uL (0.11-0.59); #Neutrophils 7.8 thou/uL (1.40-6.50); %Basophils 0.2 % (0.0-1.0); %Lymphocytes 10.1 % (21.0-51.0); %Monocytes 3.9 % (0.0-10.0); %Neutrophils 85.7 % (42.0-75.0); Hemoglobin 10.7 g/dL (14.0-18.0); Mean Corpuscular HGB CONC 32.3 g/dL (32.0-36.0); Mean Corpuscular Hemoglobin 34.3 pg (27.0-31.0); Mean Platelet Volume 9.5 fL (7.4-10.4); Platelet Count 94 thou/uL (130-400); RBC Distribution Width 12.9 % (11.5-14.5); Red Blood Cell (RBC) Count 3.13 mill/uL (4.70-6.10); White Blood Cell (WBC) Count 9.1 thou/uL (4.8-10.8)
[2020-06-08 03:29] LABS: Lactic Acid 1.2 mmol/L (0.5-2.2)
[2020-06-08 03:43] LABS: Phosphorus 4.9 mg/dL (2.3-4.7)
[2020-06-08 03:45] LABS: ALT (SGPT) 52 U/L (8-55); AST (SGOT) 36 U/L (5-34); Albumin 1.9 g/dL (3.4-4.8); Alkaline Phosphatase 41 U/L (40-110); Anion Gap 15 mmol/L (10-20); BUN (Urea Nitrogen) 54 mg/dL (8.4-25.7); Bilirubin, Total 0.3 mg/dL (0.2-1.2); Calc. Creatinine Clearance 25 mL/min (70-130); Calcium 8.4 mg/dL (7.8-10.44); Carbon Dioxide 27 mmol/L (23-31); Chloride 104 mmol/L (98-107); Globulin 4.5 g/dL (2.4-3.5); Glucose 125 mg/dL (83-110); Potassium 4.7 mmol/L (3.5-5.1); Protein, Total 6.4 g/dL (5.8-8.1); Sodium 141 mmol/L (136-145)
[2020-06-08] MEDS: Dextrose 5 %-0.45 % NaCl 1,000 ML IV SCH ×3 (05:56→23:58)
[2020-06-08] MEDS: Saccharomyces boulardii 250 MG CAP PO SCH (09:47)
[2020-06-08] MEDS: Midodrine HCl 5 MG TAB PO SCH ×3 (09:47→20:09)
[2020-06-08] MEDS: Famotidine 20 MG TAB PO SCH (09:47)
[2020-06-08] MEDS: Folic Acid 1 MG TAB PO SCH (09:47)
[2020-06-08] MEDS: Apixaban 5 MG TAB PO SCH (09:47)
[2020-06-08] MEDS: Cyanocobalamin (Vitamin B-12) 1,000 MCG TAB PO SCH (09:47)
--- NOTE | 2020-06-08 11:09 | PDOC.HOSPP ---
- Subjective Encounter Date: 06/08/20 Encounter Time: 09:45 Subjective: Patient seen and examined bedside today, patient is nonverbal, patient is on BiPAP, - Objective Vital Signs & Weight: Vital Signs (12 hours) Temp Pulse Resp Pulse Ox 06/08/20 08:52 70 38 H 100 06/08/20 07:48 97.6 F 06/08/20 04:12 97.4 F L 06/08/20 02:51 70 28 H 100 06/07/20 23:38 97.6 F Weight Admit Weight 151 lb 8 oz Weight 151 lb 8 oz I&O: 06/07/20 06/08/20 06/09/20 06:59 06:59 06:59 Intake Total 700 Output Total 100 350 Balance -100 350 Result Diagrams: 06/08/20 02:58 06/08/20 02:58 EKG Reviewed by me: Yes Hospitalist ROS - Review of Systems ROS unobtainable: due to mental status - Medication Medications: Active Medications Generic Name Dose Route Start Last Admin Trade Name Freq PRN Reason Stop Dose Admin Albuterol/Ipratropium 3 ml 06/06/20 20:36 06/06/20 22:45 Ipratropium/Albuterol Sulfate 3 Ml Neb NEB 3 ml Q6H PRN Administration SOB &/or Wheezing Apixaban 5 mg 06/06/20 21:00 06/08/20 09:47 Apixaban 5 Mg Tab PO Not Given BID JIMMY Atorvastatin Calcium 20 mg 06/07/20 21:00 06/07/20 20:56 Atorvastatin Calcium 20 Mg Tab PO Not Given HS JIMMY Cyanocobalamin 1,000 mcg 06/07/20 09:00 06/08/20 09:47 Cyanocobalamin (Vitamin B-12) 1,000 Mcg Tab PO Not Given DAILY JIMMY Famotidine 20 mg 06/07/20 09:00 06/08/20 09:47 Famotidine 20 Mg Tab PO Not Given DAILY JIMMY Folic Acid 1 mg 06/07/20 09:00 06/08/20 09:47 Folic Acid 1 Mg Tab PO Not Given DAILY JIMMY Cefepime HCl 2 gm/ Sodium 100 mls @ 200 mls/hr 06/07/20 02:00 06/08/20 01:25 Chloride IVPB 100 mls 0200,1400 JIMMY Administration Vancomycin HCl 1 gm/ Device 200 mls @ 200 mls/hr 06/07/20 09:00 06/07/20 11:02 IVPB 200 mls DAILY JIMMY Administration Dextrose/Sodium Chloride 1,000 mls @ 50 mls/hr 06/07/20 11:00 06/08/20 05:56 D5 1/2 Ns IV 1,000 mls .Q20H JIMMY Administration Midodrine 5 mg 06/07/20 09:00 06/08/20 09:47 Midodrine Hcl 5 Mg Tab PO Not Given TID JIMMY Saccharomyces Boulardii 250 mg 06/07/20 09:00 06/08/20 09:47 Saccharomyces Boulardii 250 Mg Cap PO Not Given DAILY JIMMY Scopolamine 1.5 mg 06/07/20 03:00 06/07/20 02:28 Scopolamine 1.5 Mg/72 Hour Patch TD 1.5 mg Q3D JIMMY Administration - Exam General Appearance: ill appearing Eye: PERRL ENT: normocephalic atraumatic Neck: supple, symmetric Heart: RRR, no murmur Respiratory - other findings: Bilateral coarse breath sound Gastrointestinal: soft, normal bowel sounds Extremities: no clubbing, no edema Skin: normal turgor Musculoskeletal: generalized weakness Psychiatric: not oriented Hosp A/P (1) Sepsis Code(s): A41.9 - SEPSIS, UNSPECIFIED ORGANISM Status: Acute Qualifiers: Sepsis acute organ dysfunction status: with acute organ dysfunction Severe sepsis acute organ dysfunction type: acute renal failure Severe sepsis shock status: without septic shock (2) Pneumonia Code(s): J18.9 - PNEUMONIA, UNSPECIFIED ORGANISM Status: Acute Qualifiers: Pneumonia type: due to unspecified organism Lung location: unspecified part of lung (3) Lactic acidosis Code(s): E87.2 - ACIDOSIS Status: Acute (4) MALENA (acute kidney injury) Code(s): N17.9 - ACUTE KIDNEY FAILURE, UNSPECIFIED Status: Acute (5) Acute respiratory failure with hypoxia Code(s): J96.01 - ACUTE RESPIRATORY FAILURE WITH HYPOXIA Status: Acute (6) Demand ischemia of myocardium Code(s): I24.8 - OTHER FORMS OF ACUTE ISCHEMIC HEART DISEASE Status: Acute (7) Atrial fibrillation Code(s): I48.91 - UNSPECIFIED ATRIAL FIBRILLATION Status: Chronic Qualifiers: Atrial fibrillation type: persistent (not longstanding) Qualified Code(s): I48.19 - Other persistent atrial fibrillation; I48.1 - Persistent atrial fibrillation (8) Chronic anticoagulation Code(s): Z79.01 - EMERGENCY DEPARTMENT DIRECTOR (CURRENT) USE OF ANTICOAGULANTS Status: Chronic (9) Chronic systolic heart failure, ACC/AHA stage C Code(s): I50.22 - CHRONIC SYSTOLIC (CONGESTIVE) HEART FAILURE Status: Chronic (10) Dementia Code(s): F03.90 - UNSPECIFIED DEMENTIA WITHOUT BEHAVIORAL DISTURBANCE Status: Chronic (11) Macrocytic anemia Code(s): D53.9 - NUTRITIONAL ANEMIA, UNSPECIFIED Status: Chronic (12) Severe mitral regurgitation by prior echocardiogram Code(s): I34.0 - NONRHEUMATIC MITRAL (VALVE) INSUFFICIENCY Status: Chronic (13) Severe tricuspid regurgitation by prior echocardiogram Code(s): I07.1 - RHEUMATIC TRICUSPID INSUFFICIENCY Status: Chronic (14) Thrombocytopenia Code(s): D69.6 - THROMBOCYTOPENIA, UNSPECIFIED Status: Chronic - Plan old records reviewed/req, continue antibiotics, respiratory therapy Plan We will give him NS 500 mL bolus and increase current IV fluid 100 mL/h, given elevated creatinine Continue cefepime and vancomycin for pneumonia Cardiology recommendation appreciated Continue BiPAP We will consult palliative care Prognosis poor We will repeat labs tomorrow Current medication reviewed, symptomatic and supportive care
[2020-06-08 11:14] LABS: Vancomycin, Trough 12.1 ug/mL
[2020-06-08] MEDS ORDERED: Sodium Chloride 0.9% 500 ML IV SCH (11:15)
[2020-06-08] MEDS ORDERED: Vancomycin HCl 1.25 GM in Sodium Chloride 0.9% 250 ML 250 ML IVPB SCH (14:00)
[2020-06-08] MEDS: Vancomycin 1 GM in Premix Bag 1 BAG IVPB SCH (14:06)
[2020-06-08] MEDS ORDERED: BIOTENE MOUTH SPRAY 44.3 ML MM PRN (16:00)
--- NOTE | 2020-06-08 16:03 | PDOC.PALCO ---
Palliative Care Consult - Consult Details Requesting Physician: Dr Ambriz Reason for Consult: goals of care, complex decision-making Family Members Present: Patient Sheron - Pertinent HPI Patient lives in an independent apartment setting at [place] with his who is primary caregiver. He has had continued decline, increase in assistance required with ADL, thus paid caregivers assist at times. Increase in falls, decrease in intake, increase in confusion and wandering. He was reported to have an increase in shortness of breath, his previous O2 saturations were 93% and day of presentation to emergency room were at 80's. Primary care physician directed them to call ems and be evaluated in the emergency room. Subsequent admission for management of respiratory failure secondary to pneumonia, Non st elevated myocardial infarction with positive troponin, heart failure exacerbation. - Pertinent PMH Congestive heart failure, Afib, A Flutter, Hypotension, Dementia, Declining functional status - Social History Smoking Status: Never smoker Smoking: no tobacco exposure Alcohol Use: none Drug Use History: none Living Situation: care home resident (with in assisted living) - Medications MAR Reviewed: Yes - Allergies Allergies/Adverse Reactions: Allergies Allergy/AdvReac Type Severity Reaction Status Date / Time Yeast Allergy Verified 10/21/19 22:54 - Subjective Lethargic, confused. One word answers at time of assessment. - ROS Non Response: due to mental status - Objective Vital Signs: Vital Signs - Most Recent Temp Pulse Resp BP Pulse Ox 97.6 F 70 28 H 122/58 L 99 06/08/20 11:19 06/08/20 13:24 06/08/20 13:24 06/07/20 01:40 06/08/20 13:24 Palliative Performance Scale: 30 - Physical Exam Constitutional: cachectic, emaciated, ill appearing HEENT: EOMI, moist MMs Deviation from normal: Sunken ocular bed Deviation from normal: adventicious bilaterally Cardiovascular: RRR Gastrointestinal: soft, non-tender Genitourinary: muhammad catheter Musculoskeletal: diffuse muscle atrophy Neurology: no focal deficits Skin: fragile Deviation from normal: Unable to appreciate orientation beyond self - Problem List (1) Palliative care encounter Code(s): Z51.5 - ENCOUNTER FOR PALLIATIVE CARE Current Visit: Yes Status: Acute (2) Acute respiratory failure with hypoxia Code(s): J96.01 - ACUTE RESPIRATORY FAILURE WITH HYPOXIA Current Visit: Yes Status: Acute (3) Pneumonia Code(s): J18.9 - PNEUMONIA, UNSPECIFIED ORGANISM Current Visit: Yes Status: Acute Qualifiers: Pneumonia type: due to unspecified organism Lung location: unspecified part of lung (4) Demand ischemia of myocardium Code(s): I24.8 - OTHER FORMS OF ACUTE ISCHEMIC HEART DISEASE Current Visit: No Status: Acute (5) Atrial fibrillation Code(s): I48.91 - UNSPECIFIED ATRIAL FIBRILLATION Current Visit: No Status: Chronic Qualifiers: Atrial fibrillation type: persistent (not longstanding) Qualified Code(s): I48.19 - Other persistent atrial fibrillation; I48.1 - Persistent atrial fibrillation (6) Chronic systolic heart failure, ACC/AHA stage C Code(s): I50.22 - CHRONIC SYSTOLIC (CONGESTIVE) HEART FAILURE Current Visit: No Status: Chronic (7) Dementia Code(s): F03.90 - UNSPECIFIED DEMENTIA WITHOUT BEHAVIORAL DISTURBANCE Current Visit: No Status: Chronic - Plan/Recommendations Plan: Life review with patient . She relayed how they met, over 40 years. He has two daughters from a previous marriage, they have one daughter together. Mrs Clemons is decision maker. Relayed the decline over the past few m onths and struggle to do "what is best". She relayed knowing his wishes, and that there are directives in place. Lengthy discussion in relation to hospice and back to Assisted living with hospice and additional paid caregivers verses Skilled facility with hospice overlay. She is leaning toward back to her apartment with hospice, she is reaching out to a friend for information on who they recently used. Emotional support and therapeutic listening. Palliative care will follow up 06/09 to further discuss Goal of Care in relation to consideration of Hospice as this is what Mrs Clemons believes that Mr Clemons would desire. Confirmed DNAR status Will follow up with OIADN[facility] Biotene for dry mucous membranes [75] minutes spent on this encounter with >50% of the time in counseling and coordination of care. Thank you for this very appropriate consult.
[2020-06-08] MEDS: Apixaban 2.5 MG TAB PO SCH (20:09)
[2020-06-08] MEDS: Atorvastatin Calcium 20 MG TAB PO SCH (20:09)
[2020-06-09] MEDS: Cefepime 2 GM in Sodium Chloride 0.9% 100 ML IVPB SCH (01:04)
[2020-06-09 03:34] LABS: #Lymphocytes 0.7 thou/uL (1.20-3.40); #Monocytes 0.3 thou/uL (0.11-0.59); #Neutrophils 7.2 thou/uL (1.40-6.50); %Basophils 0.1 % (0.0-1.0); %Eosinophils 0.2 % (0.0-10.0); %Lymphocytes 8.9 % (21.0-51.0); %Monocytes 3.8 % (0.0-10.0); Hemoglobin 10.2 g/dL (14.0-18.0); Mean Corpuscular HGB CONC 32.9 g/dL (32.0-36.0); Mean Corpuscular Hemoglobin 34.6 pg (27.0-31.0); Mean Platelet Volume 9.8 fL (7.4-10.4); Platelet Count 71 thou/uL (130-400); RBC Distribution Width 12.8 % (11.5-14.5); Red Blood Cell (RBC) Count 2.94 mill/uL (4.70-6.10); White Blood Cell (WBC) Count 8.3 thou/uL (4.8-10.8)
[2020-06-09 03:41] LABS: Anion Gap 13 mmol/L (10-20); BUN (Urea Nitrogen) 63 mg/dL (8.4-25.7); Calc. Creatinine Clearance 29 mL/min (70-130); Calcium 8.2 mg/dL (7.8-10.44); Carbon Dioxide 27 mmol/L (23-31); Chloride 106 mmol/L (98-107); Glucose 118 mg/dL (83-110); Sodium 142 mmol/L (136-145)
[2020-06-09 03:52] LABS: Troponin I 0.246 ng/mL (< 0.028)
[2020-06-09] MEDS: Famotidine 20 MG TAB PO SCH (06:58)
[2020-06-09] MEDS: Cyanocobalamin (Vitamin B-12) 1,000 MCG TAB PO SCH (06:58)
[2020-06-09] MEDS: Apixaban 2.5 MG TAB PO SCH ×3 (06:58→20:51)
[2020-06-09] MEDS: Folic Acid 1 MG TAB PO SCH (06:59)
[2020-06-09] MEDS: Saccharomyces boulardii 250 MG CAP PO SCH (06:59)
[2020-06-09] MEDS: Midodrine HCl 5 MG TAB PO SCH ×4 (06:59→20:52)
[2020-06-09] MEDS: Dextrose 5 %-0.45 % NaCl 1,000 ML IV SCH ×2 (07:26→11:14)
--- NOTE | 2020-06-09 10:27 | PDOC.HOSPP ---
- Subjective Encounter Date: 06/09/20 Encounter Time: 08:00 Subjective: Patient is on 4 to 5 L nasal cannula oxygen, patient is baseline confused and demented, no overnight event - Objective Vital Signs & Weight: Vital Signs (12 hours) Temp Pulse Ox 06/09/20 08:41 100 06/09/20 08:00 100 06/09/20 07:27 97.6 F 06/09/20 06:22 97.1 F L 06/08/20 23:58 97.9 F Weight Admit Weight 151 lb 8 oz Weight 151 lb 8 oz Most Recent Monitor Data Heart Rate from ECG 72 NIBP 104/66 NIBP BP-Mean 78 Respiration from ECG 17 SpO2 100 I&O: 06/08/20 06/09/20 06/10/20 06:59 06:59 06:59 Intake Total 700 1300 Output Total 350 350 Balance 350 950 Result Diagrams: 06/09/20 03:15 06/09/20 03:15 EKG Reviewed by me: Yes Hospitalist ROS - Review of Systems ROS unobtainable: due to mental status - Medication Medications: Active Medications Generic Name Dose Route Start Last Admin Trade Name Freq PRN Reason Stop Dose Admin Albuterol/Ipratropium 3 ml 06/06/20 20:36 06/06/20 22:45 Ipratropium/Albuterol Sulfate 3 Ml Neb NEB 3 ml Q6H PRN Administration SOB &/or Wheezing Apixaban 2.5 mg 06/08/20 21:00 06/09/20 06:58 Apixaban 2.5 Mg Tab PO Not Given BID JIMMY Atorvastatin Calcium 20 mg 06/07/20 21:00 06/08/20 20:09 Atorvastatin Calcium 20 Mg Tab PO Not Given HS JIMMY Cyanocobalamin 1,000 mcg 06/07/20 09:00 06/09/20 06:58 Cyanocobalamin (Vitamin B-12) 1,000 Mcg Tab PO Not Given DAILY JIMMY Famotidine 20 mg 06/07/20 09:00 06/09/20 06:58 Famotidine 20 Mg Tab PO Not Given DAILY JIMMY Folic Acid 1 mg 06/07/20 09:00 06/09/20 06:59 Folic Acid 1 Mg Tab PO Not Given DAILY JIMMY Cefepime HCl 2 gm/ Sodium 100 mls @ 200 mls/hr 06/07/20 02:00 06/09/20 01:04 Chloride IVPB 100 mls 0200,1400 JIMMY Administration Dextrose/Sodium Chloride 1,000 mls @ 100 mls/hr 06/08/20 11:12 06/09/20 07:26 D5 1/2 Ns IV 1,000 mls .Q10H JIMMY Administration Vancomycin HCl 1.25 gm/ Sodium 250 mls @ 250 mls/hr 06/08/20 14:00 06/08/20 17:17 Chloride IVPB 250 mls 1400 JIMMY Administration Midodrine 5 mg 06/07/20 09:00 06/09/20 06:59 Midodrine Hcl 5 Mg Tab PO Not Given TID JIMMY Miscellaneous Medication 0 ml 06/08/20 16:00 06/08/20 19:39 Biotene Mouth [place] 44.3 Ml MM 1 spray PRN PRN Administration Dry Mouth Saccharomyces Boulardii 250 mg 06/07/20 09:00 06/09/20 06:59 Saccharomyces Boulardii 250 Mg Cap PO Not Given DAILY JIMMY Scopolamine 1.5 mg 06/07/20 03:00 06/07/20 02:28 Scopolamine 1.5 Mg/72 Hour Patch TD 1.5 mg Q3D JIMMY Administration - Exam General Appearance: NAD, ill appearing Eye: PERRL ENT: normocephalic atraumatic, no oropharyngeal lesions, dry oral mucosa Neck: supple, symmetric, no JVD Heart: no gallops, irregular Respiratory: no wheezes, no rales, no ronchi Gastrointestinal: soft, non-tender, non-distended, normal bowel sounds Extremities: no clubbing, no edema Neurological: no focal deficits Musculoskeletal: generalized weakness, diffuse muscle atrophy Psychiatric: not oriented Hosp A/P (1) Sepsis Code(s): A41.9 - SEPSIS, UNSPECIFIED ORGANISM Status: Acute Qualifiers: Sepsis acute organ dysfunction status: with acute organ dysfunction Severe sepsis acute organ dysfunction type: acute renal failure Severe sepsis shock status: without septic shock (2) Pneumonia Code(s): J18.9 - PNEUMONIA, UNSPECIFIED ORGANISM Status: Acute Qualifiers: Pneumonia type: due to unspecified organism Lung location: unspecified part of lung (3) Lactic acidosis Code(s): E87.2 - ACIDOSIS Status: Acute (4) MALENA (acute kidney injury) Code(s): N17.9 - ACUTE KIDNEY FAILURE, UNSPECIFIED Status: Acute (5) Acute respiratory failure with hypoxia Code(s): J96.01 - ACUTE RESPIRATORY FAILURE WITH HYPOXIA Status: Acute (6) Demand ischemia of myocardium Code(s): I24.8 - OTHER FORMS OF ACUTE ISCHEMIC HEART DISEASE Status: Acute (7) Atrial fibrillation Code(s): I48.91 - UNSPECIFIED ATRIAL FIBRILLATION Status: Chronic Qualifiers: Atrial fibrillation type: persistent (not longstanding) Qualified Code(s): I48.19 - Other persistent atrial fibrillation; I48.1 - Persistent atrial fibrillation (8) Chronic anticoagulation Code(s): Z79.01 - ALF (CURRENT) USE OF ANTICOAGULANTS Status: Chronic (9) Chronic systolic heart failure, ACC/AHA stage C Code(s): I50.22 - CHRONIC SYSTOLIC (CONGESTIVE) HEART FAILURE Status: Chronic (10) Dementia Code(s): F03.90 - UNSPECIFIED DEMENTIA WITHOUT BEHAVIORAL DISTURBANCE Status: Chronic (11) Macrocytic anemia Code(s): D53.9 - NUTRITIONAL ANEMIA, UNSPECIFIED Status: Chronic (12) Severe mitral regurgitation by prior echocardiogram Code(s): I34.0 - NONRHEUMATIC MITRAL (VALVE) INSUFFICIENCY Status: Chronic (13) Severe tricuspid regurgitation by prior echocardiogram Code(s): I07.1 - RHEUMATIC TRICUSPID INSUFFICIENCY Status: Chronic (14) Thrombocytopenia Code(s): D69.6 - THROMBOCYTOPENIA, UNSPECIFIED Status: Chronic - Plan old records reviewed/req, continue antibiotics Consults: Hospice, Palliative Care Plan Continue gentle IV fluid for hydration, today we will reduce to 75 mill per ho ur, renal function is in continue to improve Continue empiric antibiotic therapy with cefepime, today we will discontinue vancomycin as culture negative Continue to wean off oxygen as tolerated is inclined towards hospice upon discharge Diet as tolerated when speech therapy clears, if patient is not able to tolerate any oral intake then will discuss with the family about option of PEG tube, Once did not be stable then will consider discharging him with a hospice at home Medication reviewed and continue provide symptomatic and supportive care
--- NOTE | 2020-06-09 14:23 | PQF ---
CLINICAL DOCUMENTATION CLARIFICATION FORM: Dear Dr. Ambriz Date: 06/09/20 Please exercise your independent, professional judgment in responding to the clarification form. Clinical indicators are provided on the bottom of this form for your review. Please check appropriate box(es): [ x ] Protein Calorie Malnutrition: [ ] Mild [ x ] Moderate [ ] Severe [ ] Other Malnutrition (please specify) [ ] Underweight without malnutrition [ ] Cachexia [ ] Other diagnosis [ ] Unable to determine In addition, please specify: Present on Admission (POA): [ x ] Yes [ ] No [ ] Unable to determine For continuity of documentation, please document condition throughout progress notes and discharge summary. Thank You. To be completed by CDI/Coding staff for physician review: CLINICAL INDICATORS - SIGNS / SYMPTOMS / LABS / RESULTS AND LOCATION IN MR H&P: "MUSCLE WASTING" DIETARY ASSESSMENT 06/07: 14.9% WEIGHT LOSS IN THE LAST 20 MONTHS" BMI 20 ALBUMIN 06/08: 1.9 RISK FACTORS / RESULTS AND LOCATION IN MR ADVANCED AGE H/O DEMENTIA (H&P) PNEUMONIA (PN 06/09) SEPSIS (PN 06/09) TREATMENT / RESULTS AND LOCATION IN MR DIETARY CONSULT 06/07 RECOMMENDATION OF NUTRITIONAL SUPPLEMENTS DISCUSSION OF PEG (PN 06/09) Moderate Malnutrition (in acute illness) Energy Intake: <75% of estimated energy requirement for > 7 days Weight Loss: 1-2%/1 week; 5%/ 1 month; 7.5%/3 months Other: mild body fat loss; mild muscle mass loss; mild fluid accumulation; Severe Malnutrition (in acute illness) Energy Intake: = 50% of estimated energy requirement for = 5 days Weight Loss: >2%/1 week; >5%/1 month; >7.5%/3 months Other: moderate body fat loss; moderate muscle mass loss; moderate- severe fluid accumulation; measurably reduced hardwood flooring specialist strength Moderate Malnutrition (in chronic illness) Energy Intake: <75% of estimated energy requirement for =1 month Weight Loss: 5%/1 month; 7.5%/3 months; 10%/6 months; 20%/1 year Other: mild body fat loss; mild muscle mass loss; mild fluid accumulation Severe Malnutrition (in chronic illness) Energy Intake: =75% of estimated energy requirement for =1 month Weight Loss: >5%/1 month; >7.5%/3 months; >10%/6 months; >20%/1 year Other: severe body fat loss; severe muscle mass loss; severe fluid accumulation; measurably reduced hardwood flooring specialist strength CDS Signature: Sara Poole RN Phone #: [phone] Date: 06/09/20 This is a permanent part of the Medical Record [facility]
--- NOTE | 2020-06-09 14:35 | PDOC.PALPN ---
Palliative Progress Note - Subjective Eyes open, aphagic at time of my assessment. has elected diet with risk. - Objective Vital Signs: Vital Signs - Most Recent Temp Pulse Resp BP Pulse Ox 97.6 F 70 28 H 122/58 L 100 06/09/20 11:17 06/08/20 13:24 06/08/20 13:24 06/07/20 01:40 06/09/20 08:41 - Physical Exam Constitutional: cachectic, emaciated, ill appearing HEENT: moist MMs, sclera anicteric Respiratory: no wheezing, unlabored breathing, diminished lung sound Cardiovascular: irregular Gastrointestinal: soft, non-tender, positive bowel sounds Musculoskeletal: no edema, diffuse muscle atrophy, muscle wasting Skin: cap refill <2 seconds, fragile Deviation from normal: Unable to determine orientation - Assessment (1) Palliative care encounter Code(s): Z51.5 - ENCOUNTER FOR PALLIATIVE CARE Current Visit: Yes Status: Acute (2) Acute respiratory failure with hypoxia Code(s): J96.01 - ACUTE RESPIRATORY FAILURE WITH HYPOXIA Current Visit: Yes Status: Acute (3) Pneumonia Code(s): J18.9 - PNEUMONIA, UNSPECIFIED ORGANISM Current Visit: Yes Status: Acute Qualifiers: Pneumonia type: due to unspecified organism Lung location: unspecified part of lung (4) Demand ischemia of myocardium Code(s): I24.8 - OTHER FORMS OF ACUTE ISCHEMIC HEART DISEASE Current Visit: No Status: Acute (5) Atrial fibrillation Code(s): I48.91 - UNSPECIFIED ATRIAL FIBRILLATION Current Visit: No Status: Chronic Qualifiers: Atrial fibrillation type: persistent (not longstanding) Qualified Code(s): I48.19 - Other persistent atrial fibrillation; I48.1 - Persistent atrial fibrillation (6) Chronic systolic heart failure, ACC/AHA stage C Code(s): I50.22 - CHRONIC SYSTOLIC (CONGESTIVE) HEART FAILURE Current Visit: No Status: Chronic (7) Dementia Code(s): F03.90 - UNSPECIFIED DEMENTIA WITHOUT BEHAVIORAL DISTURBANCE Current Visit: No Status: Chronic - Plan Plan: elected diet with risk, she had stated that patient would not desire "a feeding tube". Stated they had completed Directive to physician. Discussing possibility of transition to skilled setting with overlay of hospice, communicated to CM that she could not take him back to the independent home setting. Palliative Care has not submitted a hospice referral on behalf of patient /remains in discussion. Further education in relation to disease progression and trajectory of decline. Emotional support and Therapeutic listening. [35] minutes spent on this encounter with >50% of the time in counseling and coordination of care. - ROS Non Response: due to mental status
[2020-06-09] MEDS: Atorvastatin Calcium 20 MG TAB PO SCH ×2 (20:34→20:52)
[2020-06-10] MEDS: Dextrose 5 %-0.45 % NaCl 1,000 ML IV SCH ×3 (00:40→13:57)
[2020-06-10] MEDS ORDERED: Cefepime 2 GM in Sodium Chloride 0.9% 100 ML IVPB SCH (02:00)
[2020-06-10] MEDS: Scopolamine 1.5 mg/72 hour Patch TD SCH (04:00)
[2020-06-10] MEDS: Midodrine HCl 5 MG TAB PO SCH ×3 (08:12→21:44)
[2020-06-10] MEDS: Cyanocobalamin (Vitamin B-12) 1,000 MCG TAB PO SCH (08:12)
[2020-06-10] MEDS: Saccharomyces boulardii 250 MG CAP PO SCH (08:12)
[2020-06-10] MEDS: Apixaban 2.5 MG TAB PO SCH ×2 (08:13→21:44)
[2020-06-10] MEDS: Famotidine 20 MG TAB PO SCH (08:13)
[2020-06-10] MEDS: Folic Acid 1 MG TAB PO SCH (08:14)
[2020-06-10] MEDS ORDERED: Morphine 2 MG/ML VIAL SLOW IVP SCH (16:00)
[2020-06-10] MEDS ORDERED: Ipratropium Bromide 2.5 ml Neb NEB PRN (16:04)
[2020-06-10] MEDS ORDERED: Sodium Chloride 3% (15 ML) NEB NEB SCH ×2 (16:15→18:30)
--- NOTE | 2020-06-10 16:31 | PDOC.HOSPP ---
- Subjective Encounter Date: 06/10/20 Encounter Time: 16:28 Subjective: Patient up in bed awake appears ill. - Objective Vital Signs & Weight: Vital Signs (12 hours) Temp Pulse Resp BP Pulse Ox 06/10/20 16:05 94 L 06/10/20 15:12 97.4 F L 71 18 107/65 95 06/10/20 11:51 97.7 F 70 20 114/54 L 95 06/10/20 08:05 100 06/10/20 07:34 96.4 F L 70 16 111/57 L 100 Weight Admit Weight 151 lb 8 oz Weight 151 lb 8 oz Most Recent Monitor Data Heart Rate from ECG 79 NIBP 105/53 NIBP BP-Mean 70 Respiration from ECG 10 SpO2 100 I&O: 06/09/20 06/10/20 06/11/20 06:59 06:59 06:59 Intake Total 1300 20 Output Total 350 175 250 Balance 950 -155 -250 Result Diagrams: 06/09/20 03:15 06/09/20 03:15 Hospitalist ROS - Review of Systems Other: Unable to obtain - Medication Medications: Active Medications Generic Name Dose Route Start Last Admin Trade Name Freq PRN Reason Stop Dose Admin Apixaban 2.5 mg 06/08/20 21:00 06/10/20 08:13 Apixaban 2.5 Mg Tab PO Not Given BID JIMMY Atorvastatin Calcium 20 mg 06/07/20 21:00 06/09/20 20:52 Atorvastatin Calcium 20 Mg Tab PO Not Given HS JIMMY Cyanocobalamin 1,000 mcg 06/07/20 09:00 06/10/20 08:12 Cyanocobalamin (Vitamin B-12) 1,000 Mcg Tab PO Not Given DAILY JIMMY Famotidine 20 mg 06/07/20 09:00 06/10/20 08:13 Famotidine 20 Mg Tab PO Not Given DAILY JIMMY Folic Acid 1 mg 06/07/20 09:00 06/10/20 08:14 Folic Acid 1 Mg Tab PO Not Given DAILY JIMMY Cefepime HCl 2 gm/ Sodium 100 mls @ 200 mls/hr 06/10/20 02:00 06/10/20 01:07 Chloride IVPB 100 mls 0200 JIMMY Administration Midodrine 5 mg 06/07/20 09:00 06/10/20 15:09 Midodrine Hcl 5 Mg Tab PO Not Given TID JIMMY Miscellaneous Medication 0 ml 06/08/20 16:00 06/08/20 19:39 Biotene Mouth [place] 44.3 Ml MM 1 spray PRN PRN Administration Dry Mouth Morphine Sulfate 2 mg 06/10/20 16:00 06/10/20 16:05 Morphine 2 Mg/Ml Vial SLOW IVP 06/10/20 18:00 2 mg NOW JIMMY Administration Saccharomyces Boulardii 250 mg 06/07/20 09:00 06/10/20 08:12 Saccharomyces Boulardii 250 Mg Cap PO Not Given DAILY JIMMY Scopolamine 1.5 mg 06/07/20 03:00 06/10/20 04:00 Scopolamine 1.5 Mg/72 Hour Patch TD 1.5 mg Q3D JIMMY Administration - Exam Heart: negative: RRR, no murmur, no gallops, no rubs, normal peripheral pulses, irregular, diminshed peripheral pulses, murmur present, II/IV, III/IV Respiratory - other findings: Significant rhonchi upper lobes Gastrointestinal: negative: soft, non-tender, non-distended, normal bowel sounds, no palpable masses, no hepatomegaly, no splenomegaly, no bruit, no guarding, no rigidity, tender to palpation, distended, diminished bowl sounds, voluntary guarding Extremities: 2+ LE edema Hosp A/P (1) Acute respiratory failure with hypoxia Code(s): J96.01 - ACUTE RESPIRATORY FAILURE WITH HYPOXIA Status: Acute (2) Pneumonia Code(s): J18.9 - PNEUMONIA, UNSPECIFIED ORGANISM Status: Acute Qualifiers: Pneumonia type: due to unspecified organism Lung location: unspecified part of lung (3) MALENA (acute kidney injury) Code(s): N17.9 - ACUTE KIDNEY FAILURE, UNSPECIFIED Status: Acute (4) Demand ischemia of myocardium Code(s): I24.8 - OTHER FORMS OF ACUTE ISCHEMIC HEART DISEASE Status: Acute (5) Atrial fibrillation Code(s): I48.91 - UNSPECIFIED ATRIAL FIBRILLATION Status: Chronic Qualifiers: Atrial fibrillation type: persistent (not longstanding) Qualified Code(s): I48.19 - Other persistent atrial fibrillation; I48.1 - Persistent atrial fibrillation (6) Chronic anticoagulation Code(s): Z79.01 - CYLINDER DYER (CURRENT) USE OF ANTICOAGULANTS Status: Chronic (7) Dementia Code(s): F03.90 - UNSPECIFIED DEMENTIA WITHOUT BEHAVIORAL DISTURBANCE Status: Chronic (8) Severe mitral regurgitation by prior echocardiogram Code(s): I34.0 - NONRHEUMATIC MITRAL (VALVE) INSUFFICIENCY Status: Chronic (9) Severe tricuspid regurgitation by prior echocardiogram Code(s): I07.1 - RHEUMATIC TRICUSPID INSUFFICIENCY Status: Chronic - Plan Had a very long discussion with the patient's about patient's overall medical problems. I also discussed possible options for hospice. states that she has been thinking about hospice. I will start patient on vancomycin since patient's states that she felt that helped the patient. I did discuss with her given the patient's chronic kidney disease that this would add to the worsening renal function. We will also start patient on hyper saline solution given his significant secretions and patient is unable to cough up his secretions. Also will start patient on PPN since for the past 4 days he has not eaten anything. Patient currently has a [place] catheter will continue later however his overall prognosis appears very poor. Patient appears in pain will start patient on some pain medication. Patient has chronic low blood pressure and is on midodrine for that.
[2020-06-10] MEDS ORDERED: Vancomycin HCl 750 MG in Sodium Chloride 0.9% 250 ML 250 ML IVPB SCH (17:00)
[2020-06-10] MEDS ORDERED: [UNRECOGNIZED DRUG - REMARK] FS ONE (17:45)
--- NOTE | 2020-06-10 17:46 | PDOC.FMACP ---
Advance Care Planning - Problem (1) Palliative care encounter Status: Acute Code(s): Z51.5 - ENCOUNTER FOR PALLIATIVE CARE (2) Acute respiratory failure with hypoxia Status: Acute Code(s): J96.01 - ACUTE RESPIRATORY FAILURE WITH HYPOXIA (3) Pneumonia Status: Acute Code(s): J18.9 - PNEUMONIA, UNSPECIFIED ORGANISM Qualifiers: Pneumonia type: due to unspecified organism Lung location: unspecified part of lung (4) Demand ischemia of myocardium Status: Acute Code(s): I24.8 - OTHER FORMS OF ACUTE ISCHEMIC HEART DISEASE (5) Atrial fibrillation Status: Chronic Code(s): I48.91 - UNSPECIFIED ATRIAL FIBRILLATION Qualifiers: Atrial fibrillation type: persistent (not longstanding) Qualified Code(s): I48.19 - Other persistent atrial fibrillation; I48.1 - Persistent atrial fibrillation (6) Chronic systolic heart failure, ACC/AHA stage C Status: Chronic Code(s): I50.22 - CHRONIC SYSTOLIC (CONGESTIVE) HEART FAILURE (7) Dementia Status: Chronic Code(s): F03.90 - UNSPECIFIED DEMENTIA WITHOUT BEHAVIORAL DISTURBANCE - Note Participants: family, palliative care Summary: Palliative care revisited Advanced Care Planning with patient . The diagnosis, prognosis and goals of care were discussed. Appropriate forms and documentation to accomplish the goals of care were discussed. All questions were answered. Elected to complete OOHDNAR, Reilly DELGADO Registrar assisted. Placed on chart for physician signature. Continue with diet with risk. is in hope of transition to Skilled setting for 5 days, if patient does not tolerate or qualify will transition to hospice and private pay for facility. [facility] has accepted, awaiting to hear from [facility]. Palliative Care will sign off as Goal of Care has been met, addressed. OOHDNAR completed. Please re consult if we can further assist. Time Spent (mins): 20
[2020-06-10] MEDS ORDERED: D5W-AA 4.25% with LYTES 1,000 ML IV SCH (18:15)
[2020-06-10 19:32] VITALS: TEMP 97.7
[2020-06-10] MEDS: Atorvastatin Calcium 20 MG TAB PO SCH (21:44)
[2020-06-10 23:27] VITALS: BP 119/61
--- NOTE | 2020-06-11 15:08 | DIS ---
DATE OF ADMISSION: 06/06/2020 DATE OF DISCHARGE: 06/10/2020 DATE OF : 06/11/2020. DISCHARGE DIAGNOSES: As of the following; 1. Acute respiratory failure with hypoxia. 2. Pneumonia. 3. Acute kidney injury. 4. Demand ischemia. 5. Atrial fibrillation, on anticoagulation. 6. Dementia. 7. Severe mitral regurgitation and tricuspid regurgitation. HOSPITAL COURSE: The patient was an 84-year-old male, who initially presented to the hospital on 06/06 with complaints of shortness of breath. He had significant amount of dementia and he was noted to have significant falls at home. His EF was 20% to 25%. At this time, he was admitted into the IMCU. He was started on broad-spectrum antibiotics, was also treated with IV diuretics and DuoNeb. The patient at this time per the discussion with other physicians, the decided to make the patient DNAR. He did have an echocardiogram, which indicated an EF of 40% to 45%. The patient continued to worsen through the hospital stay and at this time, he at night and this was at 2225 hours Per notes, his was notified. Job ID: [id number]
--- NOTE | 2020-06-20 17:34 | EKG ---
Test Reason : Blood Pressure : / mmHG Vent. Rate : 078 BPM Atrial Rate : 357 BPM P-R Int : 000 ms QRS Dur : 192 ms QT Int : 432 ms P-R-T Axes : 000 259 083 degrees QTc Int : 492 ms Demand pacemaker; interpretation is based on intrinsic rhythm Atrial fibrillation with premature ventricular or aberrantly conducted complexes Right bundle branch block Septal infarct , age undetermined Abnormal ECG Confirmed by SABINE AQUINO ([id number]), social media editor HARPREET FREGOSO ([id number]) on 06/20/2020 5:34:14 PM Referred By: Confirmed By:SABINE Paniagua
== END 2020-06-10 22:25 | disposition expired | DRG 871 ==
LOC: ERS 10:50 → 2NO 13:46 → IMCU/EMU 06-07 02:59 → T4-A 06-10 02:46
PROVIDERS: ADMIT Student in an Organized Health Care Education/Training Program; ATTEND Internal Medicine
PROC: 5A09457 Assistance with Respiratory Ventilation, 24-96 Consecutive Hours, Continuous Positive Airway Pressure (ICD-10-PCS; principal; 2020-06-07)
DX: A41.9 Sepsis, unspecified organism (principal); J96.01 Acute respiratory failure with hypoxia; J18.9 Pneumonia, unspecified organism; I21.A1 Myocardial infarction type 2; I50.23 Acute on chronic systolic (congestive) heart failure; N17.9 Acute kidney failure, unspecified; E44.0 Moderate protein-calorie malnutrition; I48.19 Other persistent atrial fibrillation; I42.9 Cardiomyopathy, unspecified; E87.2 Acidosis; N39.0 Urinary tract infection, site not specified; Z66 Do not resuscitate; Z51.5 Encounter for palliative care; Z20.828 Contact with and (suspected) exposure to other viral communicable diseases; R65.20 Severe sepsis without septic shock; F03.90 Unspecified dementia, unspecified severity, without behavioral disturbance, psychotic disturbance, mood disturbance, and anxiety; I08.1 Rheumatic disorders of both mitral and tricuspid valves; D69.6 Thrombocytopenia, unspecified; E78.00 Pure hypercholesterolemia, unspecified; Z28.82 Immunization not carried out because of caregiver refusal; Z79.01 Long term (current) use of anticoagulants; Z68.20 Body mass index [BMI] 20.0-20.9, adult; Z90.49 Acquired absence of other specified parts of digestive tract; Z95.0 Presence of cardiac pacemaker; Z79.899 Other long term (current) drug therapy; Z91.048 Other nonmedicinal substance allergy status
CPT/HCPCS: 36415; 51701; 71045; 72170; 80048; 80053; 80202; 81003; 81015; 82553; 83605; 83735; 83880; 84100; 84484; 85025; 87040; 87086; 93005; 93306; 94640; 94660; 96365; 96367; 96368; 96375; J0692; J1940; J1956; J2270; J3370; J3490; J7050; J7620; U0002